=== PATIENT | female | born 1960 | race Caucasian/White ===

== ENCOUNTER 2016-09-19 04:53 | Emergency (ER) | payer MEDICAID ==
[~2016-09-19] VITALS: Ht 165.1 cm; Wt 61.2 kg
[~2016-09-19 04:53] MED LIST: GABA600T PO; HYDR50CA2 PO; LAMO100T5 PO; PALI6TAB3 PO; TRAZ50TA18 PO
[2016-09-19 04:56] VITALS: BP 134/83
[2016-09-19] MEDS ORDERED: LIDOCAINE 1%, 20ML ONE (05:10)
[2016-09-19] MEDS ORDERED: CEFTRIAXONE 1,000 MG ONE (05:20)
[2016-09-19] MEDS ORDERED: CEFTRIAXONE 1,000 MG IM ONE (05:30)
[2016-09-19] MEDS ORDERED: LIDOCAINE 1%, 20ML SQ ONE (05:30)
== END 2016-09-19 05:40 | disposition home or self-care (01) ==
LOC: ED 05:34
DX: L03.011 Cellulitis of right finger (principal); F17.210 Nicotine dependence, cigarettes, uncomplicated; F12.10 Cannabis abuse, uncomplicated
CPT/HCPCS: 26010; 96372; 99283; J0696

== ENCOUNTER 2016-09-20 10:52 | Inpatient (IN) | payer MEDICAID ==
[~2016-09-20] VITALS: Ht 167.6 cm; Wt 59.1 kg
[2016-09-20] MEDS ORDERED: SODIUM CHLORIDE FLUSH 10ML SYR IVF ONE (11:30)
[2016-09-20] MEDS ORDERED: LORazepam 2 MG/ML, 1ML IVPush PRN (11:30)
[2016-09-20] MEDS ORDERED: PIPERACILLIN/TAZO/PMX 3.375GM 50 ML IVPB ONE (11:30)
[2016-09-20] MEDS ORDERED: VANCOMYCIN PER PHARMACY MC ONE (11:30)
[2016-09-20] MEDS ORDERED: PIPERACILLIN/TAZO/PMX 3.375GM 50 ML ONE (11:50)
[2016-09-20] MEDS ORDERED: VANCOMYCIN 1,200 MG in SODIUM CHLORIDE 0.9% 250 ML IV ONE (12:00)
[2016-09-20 12:11] LABS: BLOOD UREA NITROGEN 25 mg/dL (7-18)
[2016-09-20] MEDS ORDERED: FOLIC ACID 5 MG/ML IM ONE (13:00)
[2016-09-20] MEDS ORDERED: LORazepam 2 MG/ML, 1ML IV PRN ×4 (13:00)
[2016-09-20] MEDS ORDERED: ACETAMINOPHEN 325 MG TABLET PO PRN (13:00)
[2016-09-20] MEDS ORDERED: LORazepam 1MG TABLET PO PRN ×3 (13:00)
[2016-09-20] MEDS ORDERED: SODIUM CHLORIDE FLUSH 10ML SYR IVF PRN (13:00)
[2016-09-20] MEDS ORDERED: LORazepam 0.5MG TABLET PO PRN (13:00)
[2016-09-20] MEDS ORDERED: VANCOMYCIN PER PHARMACY MC PRN (13:00)
[2016-09-20] MEDS ORDERED: ONDANSETRON 2MG/ML, 2ML IVP PRN (14:00)
[2016-09-20] MEDS ORDERED: MORPHINE SULFATE 4 MG/ML, 1ML IVPush PRN (14:00)
[2016-09-20] MEDS ORDERED: DOCUSATE 100 MG CAPSULE PO PRN (14:00)
[2016-09-20] MEDS ORDERED: BISACODYL 10 MG SUPP PR PRN (14:00)
[2016-09-20] MEDS ORDERED: POLYETHYLENE GLYCOL 17 GM PACKET PO PRN (14:00)
[2016-09-20] MEDS ORDERED: ONDANSETRON ODT 4 MG PO PRN (14:00)
[2016-09-20] MEDS ORDERED: FOLIC ACID IM ONE (14:30)
[2016-09-20 14:54] VITALS: BP 105/65
[2016-09-20] MEDS ORDERED: VANCOMYCIN 1,200 MG in SODIUM CHLORIDE 0.9% 250 ML IV SCH (15:00)
[2016-09-20] MEDS ORDERED: PHARMACOKINETIC MONITORING MC PRN (15:00)
[2016-09-20] MEDS ORDERED: THIAMINE 200 MG in DEXTROSE 5% 50 ML IVPB ONE (15:00)
[2016-09-20] MEDS ORDERED: PHARMACOKINETIC CONSULTATION MC ONE (15:00)
[2016-09-20] MEDS: NICOTINE 7 MG/24 HR PATCH.TD24 TD SCH (15:18)
[2016-09-20] MEDS: GABAPENTIN 100 MG CAPSULE PO SCH ×2 (15:18→22:44)
[2016-09-20] MEDS: ENOXAPARIN 40 MG/0.4 ML SQ SCH (15:19)
[2016-09-20] MEDS: MAGNESIUM CHLORIDE 64 MG TABLET.DR PO SCH ×2 (15:20→22:44)
[2016-09-20] MEDS: HYDROcodone/APAP 5/325 TABLET PO PRN ×2 (18:26→22:44)
[2016-09-20] MEDS: PIPERACILLIN/TAZO/PMX 3.375GM 50 ML IV SCH (18:27)
[2016-09-20 19:39] VITALS: BP 95/60
[2016-09-20] MEDS: LAMOTRIGINE 100 MG TABLET PO SCH (22:44)
[2016-09-21 01:45] VITALS: BP 97/59
[2016-09-21] MEDS: PIPERACILLIN/TAZO/PMX 3.375GM 50 ML IV SCH ×3 (02:15→20:44)
[2016-09-21 05:43] LABS: BLOOD UREA NITROGEN 19 mg/dL (7-18)
[2016-09-21 05:47] LABS: HEMOGLOBIN 13.4 g/dL (11.7-16.4)
[2016-09-21] MEDS ORDERED: GADOBUTROL 7.5 MMOL/7.5 ML PFS ONE ×2 (07:51→08:00)
[2016-09-21 07:57] VITALS: BP 96/63
[2016-09-21] MEDS: LAMOTRIGINE 100 MG TABLET PO SCH ×2 (09:22→20:44)
[2016-09-21] MEDS: VANCOMYCIN 1,200 MG in SODIUM CHLORIDE 0.9% 250 ML IV SCH (09:22)
[2016-09-21] MEDS: GABAPENTIN 100 MG CAPSULE PO SCH ×3 (09:22→20:44)
[2016-09-21] MEDS: MULTIVITAMINS/MINERALS TABLET PO SCH (09:22)
[2016-09-21] MEDS: MAGNESIUM CHLORIDE 64 MG TABLET.DR PO SCH ×3 (09:22→20:44)
[2016-09-21] MEDS: HYDROcodone/APAP 5/325 TABLET PO PRN ×2 (09:28→11:12)
[2016-09-21 12:58] VITALS: BP 95/58
[2016-09-21] MEDS: NICOTINE 7 MG/24 HR PATCH.TD24 TD SCH (13:49)
[2016-09-21] MEDS: ENOXAPARIN 40 MG/0.4 ML SQ SCH (13:50)
[2016-09-21] MEDS: PALIPERIDONE 1.5 MG TAB.ER.24 PO SCH (13:51)
[2016-09-21 18:38] VITALS: BP 87/48
[2016-09-22 00:14] VITALS: BP 97/63
[2016-09-22] MEDS: PIPERACILLIN/TAZO/PMX 3.375GM 50 ML IV SCH ×3 (02:56→19:51)
[2016-09-22] MEDS: VANCOMYCIN 1,200 MG in SODIUM CHLORIDE 0.9% 250 ML IV SCH ×2 (04:12→22:02)
[2016-09-22 07:08] VITALS: BP 119/76
[2016-09-22] MEDS: MAGNESIUM CHLORIDE 64 MG TABLET.DR PO SCH ×3 (08:20→22:02)
[2016-09-22] MEDS: HYDROcodone/APAP 5/325 TABLET PO PRN ×3 (08:20→17:25)
[2016-09-22] MEDS: GABAPENTIN 100 MG CAPSULE PO SCH ×3 (08:21→22:02)
[2016-09-22] MEDS: MULTIVITAMINS/MINERALS TABLET PO SCH (08:21)
[2016-09-22] MEDS: LAMOTRIGINE 100 MG TABLET PO SCH ×2 (10:59→22:02)
[2016-09-22] MEDS: PALIPERIDONE 1.5 MG TAB.ER.24 PO SCH (10:59)
[2016-09-22 12:06] VITALS: BP 94/61
[2016-09-22] MEDS: ENOXAPARIN 40 MG/0.4 ML SQ SCH (15:11)
[2016-09-22] MEDS: NICOTINE 7 MG/24 HR PATCH.TD24 TD SCH (15:11)
[2016-09-22 18:31] VITALS: BP 97/61
[2016-09-22 19:58] VITALS: BP 125/57
[2016-09-23 01:24] VITALS: BP 107/70
[2016-09-23] MEDS: PIPERACILLIN/TAZO/PMX 3.375GM 50 ML IV SCH ×2 (04:12→12:32)
[2016-09-23 07:51] VITALS: BP 113/77
[2016-09-23] MEDS: MAGNESIUM CHLORIDE 64 MG TABLET.DR PO SCH (08:01)
[2016-09-23] MEDS: PALIPERIDONE 1.5 MG TAB.ER.24 PO SCH (08:01)
[2016-09-23] MEDS: LAMOTRIGINE 100 MG TABLET PO SCH (08:01)
[2016-09-23] MEDS: MULTIVITAMINS/MINERALS TABLET PO SCH (08:01)
[2016-09-23] MEDS: HYDROcodone/APAP 5/325 TABLET PO PRN (08:01)
[2016-09-23] MEDS: GABAPENTIN 100 MG CAPSULE PO SCH (08:01)
[2016-09-23] MEDS ORDERED: HYDR-3240 PO (12:40)
[2016-09-23] MEDS ORDERED: SULF1TAB24 PO (12:40)
== END 2016-09-23 13:35 | disposition home or self-care (01) | DRG 603 ==
LOC: ED 12:22 → EDIP 12:47 → 3NE 13:53
PROVIDERS: ADMIT Internal Medicine; ATTEND Family Medicine
DX: L03.113 Cellulitis of right upper limb (principal); L02.511 Cutaneous abscess of right hand; G89.29 Other chronic pain; M54.2 Cervicalgia; F31.9 Bipolar disorder, unspecified; F20.9 Schizophrenia, unspecified; M54.9 Dorsalgia, unspecified; F17.210 Nicotine dependence, cigarettes, uncomplicated; F41.9 Anxiety disorder, unspecified; F10.10 Alcohol abuse, uncomplicated; S61.216A Laceration without foreign body of right little finger without damage to nail, initial encounter; W45.8XXA Other foreign body or object entering through skin, initial encounter; Y99.8 Other external cause status; Y92.098 Other place in other non-institutional residence as the place of occurrence of the external cause; Y93.89 Activity, other specified; Z63.8 Other specified problems related to primary support group; Z90.89 Acquired absence of other organs; Z90.710 Acquired absence of both cervix and uterus; Z88.8 Allergy status to other drugs, medicaments and biological substances; Z79.899 Other long term (current) drug therapy; Z71.6 Tobacco abuse counseling; Z82.0 Family history of epilepsy and other diseases of the nervous system; Z83.3 Family history of diabetes mellitus; Z71.51 Drug abuse counseling and surveillance of drug abuser
CPT/HCPCS: 36415; 80048; 82040; 83605; 85025; 87040; 99285; A9585; J1650; J2543; J3370; J3411; J7050

== ENCOUNTER 2016-10-10 15:17 | Emergency (ER) | payer MEDICAID ==
[~2016-10-10] VITALS: Ht 165.1 cm; Wt 65.9 kg
[~2016-10-10 15:17] MED LIST changes: +HYDR-3240 PO; +SULF1TAB24 PO
[2016-10-10 15:19] VITALS: BP 122/83
== END 2016-10-10 16:50 | disposition home or self-care (01) ==
LOC: ED 16:44
DX: L03.011 Cellulitis of right finger (principal)
CPT/HCPCS: 99283

== ENCOUNTER 2016-10-19 10:41 | Emergency (ER) | payer MEDICAID ==
[~2016-10-19] VITALS: Ht 165.1 cm; Wt 58.0 kg
[2016-10-19 10:43] VITALS: BP 122/82
== END 2016-10-19 12:18 | disposition home or self-care (01) ==
LOC: ED 12:12
DX: S30.0XXA Contusion of lower back and pelvis, initial encounter (principal); F20.9 Schizophrenia, unspecified; X58.XXXA Exposure to other specified factors, initial encounter; Y93.89 Activity, other specified; Y99.8 Other external cause status; Y92.89 Other specified places as the place of occurrence of the external cause
CPT/HCPCS: 72220; 99284

== ENCOUNTER 2016-10-24 18:01 | Emergency (ER) | payer MEDICAID ==
[~2016-10-24] VITALS: Ht 167.6 cm; Wt 59.1 kg
[2016-10-24] MEDS ORDERED: ONDANSETRON ODT 4 MG PO ONE (19:00)
[2016-10-24] MEDS ORDERED: KETOROLAC 30 MG/1 ML IM ONE (19:00)
[2016-10-24] MEDS ORDERED: PALI1.5T PO (19:04)
[2016-10-24] MEDS ORDERED: KETOROLAC 30 MG/1 ML ONE (19:09)
[2016-10-24] MEDS ORDERED: ONDANSETRON ODT 4 MG ONE (19:09)
[2016-10-24 19:19] LABS: BLOOD UREA NITROGEN 17 mg/dL (7-18)
[2016-10-24 19:22] LABS: ASPARTATE AMINO TRANSFERASE 22 U/L (15-37)
[2016-10-24 21:35] VITALS: BP 122/72
[2016-10-24 21:35] LABS: PATH.CAST-FLAG NOT PRESENT; SPERM-FLAG NOT PRESENT; SRC-FLAG NOT PRESENT; XTAL-FLAG NOT PRESENT; YLC-FLAG NOT PRESENT
== END 2016-10-24 22:38 | disposition home or self-care (01) ==
LOC: ED 19:06
DX: K59.00 Constipation, unspecified (principal); R11.2 Nausea with vomiting, unspecified; K75.9 Inflammatory liver disease, unspecified; F15.10 Other stimulant abuse, uncomplicated; F17.200 Nicotine dependence, unspecified, uncomplicated; Z87.01 Personal history of pneumonia (recurrent)
CPT/HCPCS: 36415; 74022; 80053; 81001; 83690; 85025; 87086; 93005; 96372; 99285; J1885; Q0162

== ENCOUNTER 2017-03-16 23:36 | Emergency (ER) | payer MEDICAID ==
[~2017-03-16] VITALS: Ht 165.1 cm; Wt 55.1 kg
[~2017-03-16 23:36] MED LIST changes: +PALI1.5T PO
[2017-03-17 01:08] LABS: HEMATOCRIT 42.1 % (34.6-47.8); HEMOGLOBIN 14.2 g/dL (11.7-16.4); WHITE BLOOD COUNT 7.4 x10^3/uL (3.4-10)
[2017-03-17 01:21] LABS: ASPARTATE AMINO TRANSFERASE 22 U/L (15-37); BLOOD UREA NITROGEN 18 mg/dL (7-18)
[2017-03-17 01:48] VITALS: BP 122/68
== END 2017-03-17 01:59 | disposition home or self-care (01) ==
LOC: ED 23:55
DX: R10.84 Generalized abdominal pain (principal); R11.2 Nausea with vomiting, unspecified; F20.9 Schizophrenia, unspecified; Z87.891 Personal history of nicotine dependence; Z90.710 Acquired absence of both cervix and uterus
CPT/HCPCS: 36415; 74022; 80053; 83690; 85025; 99285

== ENCOUNTER 2017-04-30 22:44 | Inpatient (IN) | payer MEDICAID ==
[~2017-04-30] VITALS: Ht 166.4 cm; Wt 62.0 kg
[2017-04-30 23:31] LABS: HEMATOCRIT 41.8 % (34.6-47.8); HEMOGLOBIN 14.2 g/dL (11.7-16.4); WHITE BLOOD COUNT 16.2 x10^3/uL (3.4-10)
[2017-04-30 23:41] LABS: BLOOD UREA NITROGEN 15 mg/dL (7-18)
[2017-05-01] MEDS ORDERED: CLINDAMYCIN PMX 600MG/50ML 50 ML IVPB ONE
[2017-05-01] MEDS ORDERED: SODIUM CHLORIDE FLUSH 10ML SYR IVF ONE
[2017-05-01] MEDS ORDERED: SODIUM CHLORIDE 0.9% 1,000ML IVBOLUS ONE
[2017-05-01] MEDS ORDERED: LAMO100T5 PO (00:25)
[2017-05-01] MEDS ORDERED: HYDR25CA PO (00:25)
[2017-05-01] MEDS ORDERED: INVEGA INJECTION (00:25)
[2017-05-01] MEDS ORDERED: GABA300C10 PO (00:25)
[2017-05-01] MEDS ORDERED: IBUPROFEN 200 MG TABLET PO ONE (00:30)
[2017-05-01] MEDS ORDERED: CLINDAMYCIN PMX 600MG/50ML 50 ML ONE (00:38)
[2017-05-01] MEDS ORDERED: SODIUM CHLORIDE 0.9% 1,000 ML IV ONE (00:49)
[2017-05-01] MEDS ORDERED: IBUPROFEN 200 MG TABLET ONE (00:49)
[2017-05-01] MEDS ORDERED: TEMAZEPAM 15 MG CAPSULE PO PRN (01:30)
[2017-05-01] MEDS ORDERED: ONDANSETRON 2MG/ML, 2ML IVPush PRN (01:30)
[2017-05-01] MEDS ORDERED: VANCOMYCIN PER PHARMACY MC PRN (01:30)
[2017-05-01] MEDS ORDERED: LORazepam 2 MG/ML, 1ML IVPush PRN (01:30)
[2017-05-01] MEDS ORDERED: PHARMACOKINETIC MONITORING MC PRN (02:00)
[2017-05-01] MEDS ORDERED: PHARMACOKINETIC CONSULTATION MC ONE (02:00)
[2017-05-01] MEDS: SODIUM CHLORIDE 0.9% 1,000 ML IV SCH ×3 (02:09→20:09)
[2017-05-01] MEDS: AMPICILLIN/SULBACTAM 3 GM in SODIUM CHLORIDE 0.9% 100 ML IV SCH ×4 (02:26→20:09)
[2017-05-01 03:00] VITALS: BP 105/72
[2017-05-01] MEDS: VANCOMYCIN 1,100 MG in SODIUM CHLORIDE 0.9% 250 ML IV SCH ×2 (03:14→20:46)
[2017-05-01 08:10] LABS: DAU SCREEN DISCLAIMER
[2017-05-01 08:40] VITALS: BP 102/63
[2017-05-01] MEDS: ENOXAPARIN 40 MG/0.4 ML SQ SCH (09:00)
[2017-05-01] MEDS: GABAPENTIN 300 MG CAPSULE PO SCH ×3 (09:00→20:09)
[2017-05-01] MEDS: LAMOTRIGINE 100 MG TABLET PO SCH ×2 (09:00→20:09)
[2017-05-01] MEDS: ACETAMINOPHEN 325 MG TABLET PO PRN ×2 (09:00→15:19)
[2017-05-01 15:06] VITALS: BP 102/71
[2017-05-01 21:16] VITALS: BP 91/59
[2017-05-02] VITALS (7 sets, daily range): BP systolic 99–110; BP diastolic 57–77
[2017-05-02] MEDS: AMPICILLIN/SULBACTAM 3 GM in SODIUM CHLORIDE 0.9% 100 ML IV SCH ×3 (02:33→14:30)
[2017-05-02 05:06] LABS: HEMATOCRIT 37.2 % (34.6-47.8); HEMOGLOBIN 12.6 g/dL (11.7-16.4); WHITE BLOOD COUNT 6.4 x10^3/uL (3.4-10)
[2017-05-02 05:13] LABS: BLOOD UREA NITROGEN 9 mg/dL (7-18)
[2017-05-02] MEDS: ACETAMINOPHEN 325 MG TABLET PO PRN ×2 (08:09→12:46)
[2017-05-02] MEDS: SODIUM CHLORIDE 0.9% 1,000 ML IV SCH (09:00)
[2017-05-02] MEDS: LAMOTRIGINE 100 MG TABLET PO SCH (09:47)
[2017-05-02] MEDS: ENOXAPARIN 40 MG/0.4 ML SQ SCH (09:47)
[2017-05-02] MEDS: GABAPENTIN 300 MG CAPSULE PO SCH ×2 (09:47→15:40)
[2017-05-02] MEDS ORDERED: AMOX1TAB64 PO (12:20)
[2017-05-02] MEDS: VANCOMYCIN 1,100 MG in SODIUM CHLORIDE 0.9% 250 ML IV SCH (14:00)
== END 2017-05-02 16:15 | disposition home or self-care (01) | DRG 872 ==
LOC: ED 23:20 → EDIP 05-01 00:49 → 4NOR 05-01 01:52
PROVIDERS: ADMIT Student in an Organized Health Care Education/Training Program; ATTEND Student in an Organized Health Care Education/Training Program
DX: A41.9 Sepsis, unspecified organism (principal); F20.9 Schizophrenia, unspecified; L03.115 Cellulitis of right lower limb; F31.9 Bipolar disorder, unspecified; F41.0 Panic disorder [episodic paroxysmal anxiety]; F41.1 Generalized anxiety disorder; Z88.8 Allergy status to other drugs, medicaments and biological substances
CPT/HCPCS: 36415; 80048; 80307; 82040; 83605; 83735; 84145; 85025; 87040; 99285; J0295; J1650; J3370; G0479; J7030; J7050; Q0177

== ENCOUNTER 2017-06-12 19:36 | Emergency (ER) | payer MEDICAID ==
[~2017-06-12] VITALS: Ht 165.1 cm; Wt 61.8 kg
[~2017-06-12 19:36] MED LIST changes: +AMOX1TAB64 PO; +GABA300C10 PO; +HYDR25CA PO; +INVEGA INJECTION
[2017-06-12 19:39] VITALS: BP 147/96
[2017-06-12] MEDS ORDERED: LORazepam 1MG TABLET PO ONE (20:30)
[2017-06-12] MEDS ORDERED: IBUPROFEN 200 MG TABLET PO ONE (20:30)
== END 2017-06-12 20:50 | disposition left against medical advice (07) ==
LOC: ED 20:11
DX: S30.0XXA Contusion of lower back and pelvis, initial encounter (principal); Z90.710 Acquired absence of both cervix and uterus; F20.9 Schizophrenia, unspecified; Y04.8XXA Assault by other bodily force, initial encounter; Y93.89 Activity, other specified; Y99.8 Other external cause status; Y92.89 Other specified places as the place of occurrence of the external cause
CPT/HCPCS: 72220; 99284

== ENCOUNTER 2017-06-13 07:25 | Emergency (ER) | payer MEDICAID ==
[~2017-06-13] VITALS: Ht 165.1 cm; Wt 61.8 kg
[2017-06-13 07:29] VITALS: BP 138/84
[2017-06-13] MEDS ORDERED: ONDANSETRON ODT 4 MG PO ONE (08:00)
[2017-06-13] MEDS ORDERED: ONDANSETRON ODT 4 MG ONE (08:22)
== END 2017-06-13 09:03 | disposition home or self-care (01) ==
LOC: ED 08:38
DX: R11.0 Nausea (principal); F20.9 Schizophrenia, unspecified
CPT/HCPCS: 99283; Q0162

== ENCOUNTER 2017-12-09 01:38 | Observation (INO) | payer MEDICAID ==
[~2017-12-09] VITALS: Ht 170.2 cm; Wt 75.0 kg
[2017-12-09] MEDS ORDERED: ZIPRASIDONE 20 MG INJ IM ONE (02:10)
[2017-12-09 02:27] LABS: BASOPHILS # (AUTO) 0.08 x10^3/uL (0-0.1); BASOPHILS % (AUTO) 1 % (0-1); EOSINOPHILS # (AUTO) 0.18 x10^3/uL (0-0.4); EOSINOPHILS % (AUTO) 2 % (1-7); LYMPHOCYTES # (AUTO) 2.49 x10^3/uL (1-3.4); LYMPHOCYTES % (AUTO) 30 % (22-44); MD NO; MEAN CORPUSCULAR HEMOGLOBIN 30.1 pg (27.0-34.8); MEAN CORPUSCULAR HGB CONC 33.9 g/dL (32.4-35.8); MEAN CORPUSCULAR VOLUME 88.7 fL (80-100); MEAN PLATELET VOLUME 7.8 fL (7.4-10.4); MONOCYTES # (AUTO) 0.75 x10^3/uL (0.2-0.8); MONOCYTES % (AUTO) 9 % (2-9); NEUTROPHILS # (AUTO) 4.71 x10^3/uL (1.8-6.8); NEUTROPHILS % (AUTO) 57 % (42-75); PLATELET COUNT 273 x10^3/uL (130-400); RED BLOOD COUNT 4.88 x10^6/uL (3.82-5.3); RED CELL DISTRIBUTION WIDTH 13.9 % (9.6-15.2)
[2017-12-09] MEDS ORDERED: LORazepam 1MG TABLET ONE (02:28)
[2017-12-09] MEDS ORDERED: LORazepam 1MG TABLET PO ONE (02:30)
[2017-12-09 02:37] LABS: ALANINE AMINOTRANSFERASE 50 U/L (12-78); ALBUMIN 3.7 g/dL (3.4-5.0); ANION GAP 9 mmol/L (5-15); CALCIUM 8.7 mg/dL (8.5-10.1); CHLORIDE 108 mmol/L (98-107); SALICYLATE LEVEL 1.8 mg/dL (2.8-20.0)
[2017-12-09 02:48] LABS: ALKALINE PHOSPHATASE 75 U/L (45-117); BILIRUBIN,TOTAL 0.5 mg/dL (0.2-1.0); CREATININE 0.72 mg/dL (0.55-1.02); THYROID STIMULATING HORMONE 0.612 mIU/L (0.358-3.740); TOTAL PROTEIN 7.2 g/dL (6.4-8.2)
[2017-12-09 02:50] LABS: ACETAMINOPHEN < 2 mcg/mL (10-30)
[2017-12-09 03:03] LABS: CULTURE INDICATED? YES; MICROSCOPIC INDICATED
[2017-12-09] MEDS ORDERED: FOSFOMYCIN 3 GM PACKET PO ONE (03:30)
[2017-12-09 03:48] LABS: AMPHETAMINE SCREEN, URINE Positive (Negative); BARBITURATE SCREEN, URINE Negative (Negative); BENZODIAZEPINE SCREEN, URINE Negative (Negative); CANNABINOID SCREEN, URINE Positive (Negative); COCAINE SCREEN, URINE Negative (Negative); METHADONE SCREEN, URINE Negative (Negative); OPIATE SCREEN, URINE Negative (Negative)
[2017-12-09] MEDS ORDERED: ONDANSETRON ODT 4 MG PO PRN (05:00)
[2017-12-09] MEDS ORDERED: ACETAMINOPHEN 325 MG TABLET PO PRN (05:00)
[2017-12-09] MEDS ORDERED: LORazepam 2 MG/ML, 1ML IM PRN (05:00)
[2017-12-09] MEDS ORDERED: DOCUSATE 100 MG CAPSULE PO PRN (05:00)
[2017-12-09 05:16] VITALS: BP 108/71
[2017-12-09 07:38] VITALS: BP 114/79
[2017-12-09 19:27] VITALS: BP 92/54
[2017-12-10 07:54] VITALS: BP 133/82
[2017-12-10] MEDS: LORazepam 1MG TABLET PO PRN (08:22)
[2017-12-10] MEDS: NICOTINE 14MG/24 HR PATCH.TD24 TD SCH (16:56)
[2017-12-10 19:48] VITALS: BP 127/83
[2017-12-11 07:56] VITALS: BP 122/79
[2017-12-11] MEDS: NICOTINE 14MG/24 HR PATCH.TD24 TD SCH ×2 (17:00→20:42)
[2017-12-11 20:33] VITALS: BP 120/84
[2017-12-12 09:05] VITALS: BP 132/91
[2017-12-12] MEDS: NICOTINE 14MG/24 HR PATCH.TD24 TD SCH (16:57)
[2017-12-12 20:00] VITALS: BP 120/76
[2017-12-12] MEDS: LORazepam 1MG TABLET PO PRN (21:00)
[2017-12-13 07:32] VITALS: BP 113/77
[2017-12-13] MEDS ORDERED: DOCU-131 PO (16:57)
[2017-12-13] MEDS: NICOTINE 14MG/24 HR PATCH.TD24 TD SCH (16:57)
[2017-12-13] MEDS ORDERED: ONDA4TAB13 PO (16:57)
[2017-12-13] MEDS ORDERED: NICO-486 TD (16:57)
[2017-12-13] MEDS ORDERED: LORA-446 PO (16:57)
[2017-12-13] MEDS ORDERED: ACET325T14 PO (16:57)
== END 2017-12-13 17:26 ==
LOC: ED 03:13 → EDIP 03:32 → 2N 05:08
PROVIDERS: ADMIT Internal Medicine; ATTEND Internal Medicine
DX: R44.0 Auditory hallucinations (principal); F12.10 Cannabis abuse, uncomplicated; F15.10 Other stimulant abuse, uncomplicated; F17.200 Nicotine dependence, unspecified, uncomplicated; F31.9 Bipolar disorder, unspecified; N39.0 Urinary tract infection, site not specified
CPT/HCPCS: 36415; 80053; 80307; 80329; 81001; 84443; 85025; 87086; 99285; G0378; G0480

== ENCOUNTER 2017-12-13 17:10 | Inpatient (IN) | payer MEDICAID ==
[~2017-12-13] VITALS: Ht 165.1 cm; Wt 69.6 kg
[~2017-12-13 17:10] MED LIST changes: +ACET325T14 PO; +DOCU-131 PO; +LORA-446 PO; +NICO-486 TD; +ONDA4TAB13 PO
[2017-12-13 18:00] VITALS: BP 117/85
[2017-12-13] MEDS ORDERED: LORazepam 1MG TABLET PO PRN (18:30)
[2017-12-13] MEDS ORDERED: NICOTINE 14MG/24 HR PATCH.TD24 TD SCH (18:30)
[2017-12-13] MEDS ORDERED: ACETAMINOPHEN 325 MG TABLET PO PRN (18:30)
[2017-12-13] MEDS: PLEASE ENTER HEIGHT AND WEIGHT MC SCH (19:00)
[2017-12-13 20:28] VITALS: BP 112/78
[2017-12-14] MEDS: PLEASE ENTER HEIGHT AND WEIGHT MC SCH ×2 (03:00→11:40)
[2017-12-14 09:12] VITALS: BP 104/68
[2017-12-14] MEDS: NICOTINE 14MG/24 HR PATCH.TD24 TD SCH (17:29)
[2017-12-14 20:00] VITALS: BP 109/74
[2017-12-14] MEDS: LAMOTRIGINE 25 MG TABLET PO SCH (21:05)
[2017-12-15 08:05] VITALS: BP 106/69
[2017-12-15] MEDS: LAMOTRIGINE 25 MG TABLET PO SCH ×2 (09:12→21:07)
[2017-12-15] MEDS: NICOTINE 14MG/24 HR PATCH.TD24 TD SCH (16:42)
[2017-12-15 19:45] VITALS: BP 109/75
[2017-12-16 07:28] VITALS: BP 117/69
[2017-12-16] MEDS: LAMOTRIGINE 25 MG TABLET PO SCH ×2 (08:36→19:58)
[2017-12-16] MEDS ORDERED: LAMO25TA PO (12:06)
[2017-12-16] MEDS ORDERED: NICO-486 TD (12:06)
[2017-12-16] MEDS: NICOTINE 14MG/24 HR PATCH.TD24 TD SCH (16:39)
[2017-12-16 19:59] VITALS: BP 105/66
[2017-12-17 07:40] VITALS: BP_SYST 103; BP_SYST 125; BP_DIAS 65; BP_DIAS 84
[2017-12-17] MEDS: LAMOTRIGINE 25 MG TABLET PO SCH (08:22)
== END 2017-12-17 12:00 | disposition home or self-care (01) | DRG 885 ==
LOC: 3E 18:03
PROVIDERS: ADMIT Psychiatry & Neurology Psychosomatic Medicine; ATTEND Psychiatry & Neurology Psychosomatic Medicine
DX: F31.10 Bipolar disorder, current episode manic without psychotic features, unspecified (principal); B19.20 Unspecified viral hepatitis C without hepatic coma; E86.0 Dehydration; F12.20 Cannabis dependence, uncomplicated; F15.10 Other stimulant abuse, uncomplicated; I10 Essential (primary) hypertension; J44.9 Chronic obstructive pulmonary disease, unspecified; F17.210 Nicotine dependence, cigarettes, uncomplicated
CPT/HCPCS: 71045; 93005

== ENCOUNTER 2017-12-25 21:00 | Emergency (ER) | payer MEDICAID ==
[~2017-12-25] VITALS: Ht 165.1 cm; Wt 64.0 kg
[~2017-12-25 21:00] MED LIST changes: +LAMO25TA PO
[2017-12-25] MEDS ORDERED: KETOROLAC 30 MG/1 ML IVPush ONE (21:30)
[2017-12-25] MEDS ORDERED: ONDANSETRON 2MG/ML, 2ML IVPush ONE (21:30)
[2017-12-25 21:52] LABS: BASOPHILS # (AUTO) 0.03 x10^3/uL (0-0.1); BASOPHILS % (AUTO) 1 % (0-1); EOSINOPHILS # (AUTO) 0.23 x10^3/uL (0-0.4); EOSINOPHILS % (AUTO) 4 % (1-7); LYMPHOCYTES # (AUTO) 2.65 x10^3/uL (1-3.4); LYMPHOCYTES % (AUTO) 43 % (22-44); MD NO; MEAN CORPUSCULAR HEMOGLOBIN 30.9 pg (27.0-34.8); MEAN CORPUSCULAR HGB CONC 34.8 g/dL (32.4-35.8); MEAN CORPUSCULAR VOLUME 88.8 fL (80-100); MEAN PLATELET VOLUME 8.1 fL (7.4-10.4); MONOCYTES # (AUTO) 0.69 x10^3/uL (0.2-0.8); MONOCYTES % (AUTO) 11 % (2-9); NEUTROPHILS # (AUTO) 2.62 x10^3/uL (1.8-6.8); NEUTROPHILS % (AUTO) 42 % (42-75); PLATELET COUNT 253 x10^3/uL (130-400); RED BLOOD COUNT 4.33 x10^6/uL (3.82-5.3)
[2017-12-25 22:01] LABS: ALBUMIN 3.4 g/dL (3.4-5.0); ANION GAP 6 mmol/L (5-15); CALCIUM 8.4 mg/dL (8.5-10.1); CHLORIDE 110 mmol/L (98-107)
[2017-12-25 22:05] LABS: TROPONIN I < 0.015 ng/mL (0.000-0.045)
[2017-12-25] MEDS ORDERED: POTASSIUM CHLORIDE 20 MEQ TAB.ER.PRT PO ONE (22:30)
[2017-12-25] MEDS ORDERED: POTASSIUM CHLORIDE 20 MEQ TAB.ER.PRT ONE (22:32)
[2017-12-25 23:08] VITALS: BP 117/74
== END 2017-12-25 23:10 | disposition home or self-care (01) ==
LOC: ED 22:59
DX: R05 Cough (principal); R07.89 Other chest pain; F15.10 Other stimulant abuse, uncomplicated; E87.6 Hypokalemia; E11.9 Type 2 diabetes mellitus without complications; Z90.710 Acquired absence of both cervix and uterus; F17.200 Nicotine dependence, unspecified, uncomplicated; Z72.89 Other problems related to lifestyle
CPT/HCPCS: 36415; 71045; 80048; 82040; 84484; 85025; 93005; 99285

== ENCOUNTER 2018-01-03 16:48 | Emergency (ER) | payer MEDICAID ==
[~2018-01-03] VITALS: Ht 152.4 cm; Wt 64.0 kg
[~2018-01-03 16:48] MED LIST changes: +TRAZ-136 PO; -TRAZ50TA18 PO
[2018-01-03 17:12] LABS: BASOPHILS # (AUTO) 0.03 x10^3/uL (0-0.1); BASOPHILS % (AUTO) 1 % (0-1); EOSINOPHILS # (AUTO) 0.21 x10^3/uL (0-0.4); EOSINOPHILS % (AUTO) 3 % (1-7); LYMPHOCYTES # (AUTO) 2.16 x10^3/uL (1-3.4); LYMPHOCYTES % (AUTO) 34 % (22-44); MD NO; MEAN CORPUSCULAR HEMOGLOBIN 30.3 pg (27.0-34.8); MEAN CORPUSCULAR HGB CONC 33.7 g/dL (32.4-35.8); MEAN PLATELET VOLUME 7.8 fL (7.4-10.4); MONOCYTES # (AUTO) 0.55 x10^3/uL (0.2-0.8); MONOCYTES % (AUTO) 9 % (2-9); NEUTROPHILS # (AUTO) 3.49 x10^3/uL (1.8-6.8); NEUTROPHILS % (AUTO) 54 % (42-75); PLATELET COUNT 223 x10^3/uL (130-400); RED BLOOD COUNT 4.84 x10^6/uL (3.82-5.3); RED CELL DISTRIBUTION WIDTH 14.2 % (9.6-15.2)
[2018-01-03 17:24] LABS: ALANINE AMINOTRANSFERASE 38 U/L (12-78); ALBUMIN 3.2 g/dL (3.4-5.0); ANION GAP 8 mmol/L (5-15); CALCIUM 8.3 mg/dL (8.5-10.1); CHLORIDE 111 mmol/L (98-107); CREATININE 0.74 mg/dL (0.55-1.02)
[2018-01-03 17:27] LABS: ALKALINE PHOSPHATASE 65 U/L (45-117); BILIRUBIN,TOTAL 0.2 mg/dL (0.2-1.0); TOTAL PROTEIN 6.7 g/dL (6.4-8.2)
[2018-01-03] MEDS ORDERED: SODIUM CHLORIDE FLUSH 10ML SYR IVF ONE (17:30)
[2018-01-03] MEDS ORDERED: ONDANSETRON 2MG/ML, 2ML IVPush ONE (17:30)
[2018-01-03] MEDS ORDERED: SODIUM CHLORIDE 0.9% 1,000ML IVBOLUS ONE (17:30)
[2018-01-03 18:07] VITALS: BP 124/81
== END 2018-01-03 19:17 | disposition home or self-care (01) ==
LOC: ED 18:12
DX: F10.239 Alcohol dependence with withdrawal, unspecified (principal); E11.9 Type 2 diabetes mellitus without complications; F41.1 Generalized anxiety disorder; F20.9 Schizophrenia, unspecified; Z90.710 Acquired absence of both cervix and uterus; Z88.8 Allergy status to other drugs, medicaments and biological substances
CPT/HCPCS: 36415; 80053; 80307; 85025; 96374; 99284; J2405; J7030

== ENCOUNTER 2018-04-27 20:59 | Emergency (ER) | payer MEDICAID ==
[~2018-04-27] VITALS: Ht 165.1 cm; Wt 65.0 kg
[2018-04-27 22:45] VITALS: BP 156/94
== END 2018-04-27 22:47 | disposition home or self-care (01) ==
LOC: ED 21:27
DX: M25.562 Pain in left knee (principal); E11.9 Type 2 diabetes mellitus without complications
CPT/HCPCS: 82962; 99283

== ENCOUNTER 2018-06-05 20:41 | Emergency (ER) | payer MEDICAID ==
[~2018-06-05] VITALS: Ht 165.1 cm; Wt 64.8 kg
[~2018-06-05 20:41] MED LIST changes: -TRAZ-136 PO; +TRAZ50TA66 PO
--- NOTE | 2018-06-05 21:07 | NUR ---
PT ARRIVES TO ED WITH C/O OF CHEST PAIN THAT STARTED AT 1400. PT REPORTS CHEST PAIN SHARP WITH NO RADIATION. ALSO A 7/10 CHEST PAIN. PT DENIES ANY TRAUMA AND REPORTS STARTED OUT OF NOWHERE. NO DIAPHORESIS, SOB, N/V. PT HAS NADN. REST IMRPROVING PAIN. PT CONNECTED TO MONITORS AND CALL LIGHT IN REACH. AWAITING FURTHER ORDERS.
[2018-06-05] MEDS ORDERED: ACETAMINOPHEN 500 MG TABLET ONE (21:17)
[2018-06-05] MEDS ORDERED: NAPROXEN 500 MG TABLET ONE (21:17)
--- NOTE | 2018-06-05 21:25 | NUR ---
PT MEDICATED PER EMAR.
[2018-06-05] MEDS ORDERED: NAPROXEN 500 MG TABLET PO ONE (21:30)
[2018-06-05] MEDS ORDERED: ACETAMINOPHEN 500 MG TABLET PO ONE (21:30)
[2018-06-05 21:31] LABS: BASOPHILS # (AUTO) 0.05 x10^3/uL (0-0.1); BASOPHILS % (AUTO) 1 % (0-1); EOSINOPHILS # (AUTO) 0.21 x10^3/uL (0-0.4); EOSINOPHILS % (AUTO) 4 % (1-7); LYMPHOCYTES # (AUTO) 2.57 x10^3/uL (1-3.4); LYMPHOCYTES % (AUTO) 45 % (22-44); MD NO; MEAN CORPUSCULAR HEMOGLOBIN 29.5 pg (27.0-34.8); MEAN CORPUSCULAR HGB CONC 33.2 g/dL (32.4-35.8); MEAN CORPUSCULAR VOLUME 88.8 fL (80-100); MEAN PLATELET VOLUME 7.9 fL (7.4-10.4); MONOCYTES # (AUTO) 0.53 x10^3/uL (0.2-0.8); MONOCYTES % (AUTO) 9 % (2-9); NEUTROPHILS # (AUTO) 2.34 x10^3/uL (1.8-6.8); NEUTROPHILS % (AUTO) 41 % (42-75); PLATELET COUNT 206 x10^3/uL (130-400); RED BLOOD COUNT 4.56 x10^6/uL (3.82-5.3); RED CELL DISTRIBUTION WIDTH 14.6 % (9.6-15.2)
[2018-06-05 21:39] LABS: ALBUMIN 3.3 g/dL (3.4-5.0); ANION GAP 7 mmol/L (5-15); CALCIUM 7.9 mg/dL (8.5-10.1); CHLORIDE 112 mmol/L (98-107); CREATININE 0.79 mg/dL (0.55-1.02)
[2018-06-05 21:42] LABS: TROPONIN I < 0.015 ng/mL (0.000-0.045)
[2018-06-05 21:46] VITALS: BP 132/84
--- NOTE | 2018-06-05 22:06 | NUR ---
Patient/Caregiver given discharge instructions and they have confirmed that they understand the instructions. Patient ambulatory with steady gait.
== END 2018-06-05 22:08 | disposition home or self-care (01) ==
LOC: ED 22:02
DX: R07.2 Precordial pain (principal); F17.200 Nicotine dependence, unspecified, uncomplicated
CPT/HCPCS: 36415; 71045; 80048; 82040; 84484; 85025; 85379; 93005; 99284

== ENCOUNTER 2018-08-11 13:15 | Emergency (ER) | payer MEDICAID ==
[~2018-08-11] VITALS: Ht 157.5 cm; Wt 63.0 kg
[~2018-08-11 13:15] MED LIST changes: -LAMO25TA PO; +LAMO25TA9 PO
[2018-08-11 13:35] VITALS: BP 140/78
--- NOTE | 2018-08-11 13:42 | NUR ---
PT AMBULATORY TO ROOM.
[2018-08-11 13:58] LABS: MEAN CORPUSCULAR HEMOGLOBIN 30.9 pg (27.0-34.8); MEAN CORPUSCULAR HGB CONC 34.9 g/dL (32.4-35.8); MEAN CORPUSCULAR VOLUME 88.6 fL (80-100); MEAN PLATELET VOLUME 8.3 fL (7.4-10.4); PLATELET COUNT 208 x10^3/uL (130-400); RED BLOOD COUNT 4.12 x10^6/uL (3.82-5.3); RED CELL DISTRIBUTION WIDTH 14.3 % (9.6-15.2)
[2018-08-11 14:09] LABS: ALBUMIN 4.3 g/dL (3.4-5.0); ANION GAP 14 mmol/L (5-15); CALCIUM 8.8 mg/dL (8.5-10.1); CHLORIDE 104 mmol/L (98-107)
[2018-08-11 14:13] LABS: ALANINE AMINOTRANSFERASE 71 U/L (12-78); ALKALINE PHOSPHATASE 77 U/L (45-117); BILIRUBIN,TOTAL 1.5 mg/dL (0.2-1.0); SALICYLATE LEVEL 3.4 mg/dL (2.8-20.0); TOTAL PROTEIN 7.4 g/dL (6.4-8.2)
[2018-08-11 14:14] LABS: ACETAMINOPHEN < 2 mcg/mL (10-30)
--- NOTE | 2018-08-11 14:30 | NUR ---
UP TO BR UNABLE TO URINATE REP AWARE PO FLIDS GIVEN
[2018-08-11 14:47] LABS: BASOPHILS % (AUTO) 1 % (0-1); EOSINOPHILS # (AUTO) 0.01 x10^3/uL (0-0.4); EOSINOPHILS % (AUTO) 0 % (1-7); LYMPHOCYTES # (AUTO) 2.63 x10^3/uL (1-3.4); LYMPHOCYTES % (AUTO) 19 % (22-44); MD SCAN; MONOCYTES # (AUTO) 1.55 x10^3/uL (0.2-0.8); MONOCYTES % (AUTO) 11 % (2-9); NEUTROPHILS # (AUTO) 9.54 x10^3/uL (1.8-6.8); NEUTROPHILS % (AUTO) 69 % (42-75)
== END 2018-08-11 16:11 | disposition home or self-care (01) ==
LOC: ED 15:18
DX: F15.90 Other stimulant use, unspecified, uncomplicated (principal); F20.9 Schizophrenia, unspecified; F41.1 Generalized anxiety disorder; E11.9 Type 2 diabetes mellitus without complications; F17.200 Nicotine dependence, unspecified, uncomplicated; Z72.9 Problem related to lifestyle, unspecified; Z88.8 Allergy status to other drugs, medicaments and biological substances; Z90.710 Acquired absence of both cervix and uterus
CPT/HCPCS: 36415; 80053; 80307; 80329; 85025; 99283; G0480

== ENCOUNTER 2018-09-24 17:37 | Emergency (ER) | payer MEDICAID ==
[~2018-09-24] VITALS: Ht 165.1 cm; Wt 60.0 kg
[2018-09-24] MEDS ORDERED: HYDR10TA4 PO (18:17)
[2018-09-24] MEDS ORDERED: GABA300C10 PO (18:17)
[2018-09-24] MEDS ORDERED: LAMO5TB.2 PO (18:17)
[2018-09-24] MEDS ORDERED: DIAZEPAM 5 MG TABLET ONE (18:23)
[2018-09-24] MEDS ORDERED: DIAZEPAM 5 MG TABLET PO ONE (18:30)
--- NOTE | 2018-09-24 18:32 | NUR ---
Pt ambulatory to x-ray with steady gait and balance. Pt provided medication per EMAR.
--- NOTE | 2018-09-24 18:52 | NUR ---
received report from JAIMIE Cline
--- NOTE | 2018-09-24 19:20 | NUR ---
sling applied. patient discharged with prescription and instruction. verbalized understanding.
[2018-09-24 19:21] VITALS: BP 154/81
== END 2018-09-24 19:22 | disposition home or self-care (01) ==
LOC: ED 18:36
DX: M25.511 Pain in right shoulder (principal)
CPT/HCPCS: 82962; 99283

== ENCOUNTER 2018-11-16 00:34 | Emergency (ER) | payer MEDICAID ==
[~2018-11-16] VITALS: Ht 165.1 cm; Wt 60.1 kg
[~2018-11-16 00:34] MED LIST changes: +HYDR10TA4 PO; +LAMO5TB.2 PO
[2018-11-16 00:38] VITALS: BP 152/89
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
== END 2018-11-16 01:27 | disposition home or self-care (01) ==
LOC: ED 01:21
DX: J01.90 Acute sinusitis, unspecified (principal); Z59.0 Homelessness; F20.9 Schizophrenia, unspecified; F15.10 Other stimulant abuse, uncomplicated; Z90.710 Acquired absence of both cervix and uterus
CPT/HCPCS: 99283

== ENCOUNTER 2018-12-30 23:55 | Inpatient (IN) | payer MEDICAID ==
[~2018-12-30] VITALS: Ht 165.1 cm; Wt 60.4 kg
[2019-01-13 14:55] VITALS: BP 107/74
== END 2019-01-13 16:30 | DRG 316 ==
LOC: ED 12-31 00:30 → EDIP 12-31 01:11 → 3NE 12-31 02:00 → 3E 01-05 06:36
PROVIDERS: ADMIT Family Medicine; ATTEND Family Medicine
PROC: 0LB80ZZ Excision of Left Hand Tendon, Open Approach (ICD-10-PCS; principal; 2019-01-05)
DX: M65.142 Other infective (teno)synovitis, left hand (principal); E44.0 Moderate protein-calorie malnutrition; F20.9 Schizophrenia, unspecified; L02.512 Cutaneous abscess of left hand; E11.9 Type 2 diabetes mellitus without complications; E87.6 Hypokalemia; F10.10 Alcohol abuse, uncomplicated; L03.114 Cellulitis of left upper limb; F15.10 Other stimulant abuse, uncomplicated; F17.210 Nicotine dependence, cigarettes, uncomplicated; F15.129 Other stimulant abuse with intoxication, unspecified; F41.1 Generalized anxiety disorder; K59.00 Constipation, unspecified; Z90.710 Acquired absence of both cervix and uterus; Z82.5 Family history of asthma and other chronic lower respiratory diseases; Z82.49 Family history of ischemic heart disease and other diseases of the circulatory system; Z83.3 Family history of diabetes mellitus; Z59.0 Homelessness; Z63.8 Other specified problems related to primary support group; Z71.6 Tobacco abuse counseling; Z88.8 Allergy status to other drugs, medicaments and biological substances; Z68.22 Body mass index [BMI] 22.0-22.9, adult
CPT/HCPCS: 36415; 80048; 80053; 80069; 80202; 80307; 83036; 83605; 83735; 84145; 85025; 85651; 86140; 87015; 87040; 87070; 87075; 87102; 87116; 87205; 87206; 93005; 96365; 99285; G0378; J0690; J1100; J1170; J1650; J1885; J2250; J2405; J2543; J2704; J3010; J3370; J7050; J7120

== ENCOUNTER 2019-03-28 15:03 | Emergency (ER) | payer MEDICAID ==
[~2019-03-28] VITALS: Ht 165.1 cm; Wt 62.0 kg
[~2019-03-28 15:03] MED LIST changes: +ACET325T26 PO; +CEFA2PIG7 IVPB
--- NOTE | 2019-03-28 15:20 | NUR ---
MAYE SARGENT CP THIS AM ANXIOUS ON CHANTIX AND SMOKING, also just started wellbutrin Took aleve this afternoon with minimal relief
[2019-03-28] MEDS ORDERED: ASPIRIN 81 MG TABLET CHEW PO ONE (15:30)
[2019-03-28 15:40] LABS: BASOPHILS # (AUTO) 0.04 x10^3/uL (0-0.1); BASOPHILS % (AUTO) 1 % (0-1); EOSINOPHILS # (AUTO) 0.26 x10^3/uL (0-0.4); EOSINOPHILS % (AUTO) 4 % (1-7); LYMPHOCYTES # (AUTO) 2.08 x10^3/uL (1-3.4); LYMPHOCYTES % (AUTO) 32 % (22-44); MD NO; MEAN CORPUSCULAR HEMOGLOBIN 30.1 pg (27.0-34.8); MEAN CORPUSCULAR HGB CONC 33.7 g/dL (32.4-35.8); MEAN CORPUSCULAR VOLUME 89.3 fL (80-100); MONOCYTES # (AUTO) 0.43 x10^3/uL (0.2-0.8); MONOCYTES % (AUTO) 7 % (2-9); NEUTROPHILS % (AUTO) 57 % (42-75); PLATELET COUNT 251 x10^3/uL (130-400); RED CELL DISTRIBUTION WIDTH 14.6 % (9.6-15.2)
[2019-03-28] MEDS ORDERED: ASPIRIN 81 MG TABLET CHEW ONE (15:42)
--- NOTE | 2019-03-28 15:50 | NUR ---
medicated per emar
[2019-03-28 15:52] LABS: ALANINE AMINOTRANSFERASE 49 U/L (12-78); ALBUMIN 3.7 g/dL (3.4-5.0); ANION GAP 7 mmol/L (5-15); CALCIUM 8.6 mg/dL (8.5-10.1); CHLORIDE 110 mmol/L (98-107); CREATININE 0.79 mg/dL (0.55-1.02)
[2019-03-28 15:57] LABS: ALKALINE PHOSPHATASE 72 U/L (45-117); BILIRUBIN,TOTAL 0.3 mg/dL (0.2-1.0); TOTAL PROTEIN 7.3 g/dL (6.4-8.2); TROPONIN I < 0.015 ng/mL (0.000-0.045)
[2019-03-28 16:29] VITALS: BP 128/71
== END 2019-03-28 16:55 | disposition home or self-care (01) ==
LOC: ED 16:05
DX: R07.89 Other chest pain (principal); E11.9 Type 2 diabetes mellitus without complications; F20.9 Schizophrenia, unspecified; Z72.9 Problem related to lifestyle, unspecified; Z90.49 Acquired absence of other specified parts of digestive tract; Z90.710 Acquired absence of both cervix and uterus; Z87.891 Personal history of nicotine dependence
CPT/HCPCS: 36415; 71045; 80053; 84484; 85025; 93005; 99284

== ENCOUNTER 2019-04-04 15:05 | Emergency (ER) | payer MEDICAID ==
[~2019-04-04] VITALS: Ht 165.1 cm; Wt 63.4 kg
[2019-04-04 15:14] VITALS: BP 155/98
--- NOTE | 2019-04-04 15:54 | NUR ---
FIRST CONTACT WITH PT. PT COMES TO TRIAGE WITH FLIGHT OF IDEAS DESCRIBING PHONE AND CLOTHING AND CHATTING PLEASANTLY WITH RN AND EMT. PT C/O LEFT HAND PAIN. PT TALKING BY HERSELF ABOUT HER BELONGINGS AT THIS TIME. PT DENIES SI/HI NOW.
--- NOTE | 2019-04-04 16:40 | NUR ---
PT AWARES OF UA. EDMD OK'D TO GIVE SOME WATER. WATER GIVEN.
[2019-04-04 16:46] LABS: BASOPHILS # (AUTO) 0.02 x10^3/uL (0-0.1); BASOPHILS % (AUTO) 0 % (0-1); EOSINOPHILS # (AUTO) 0.16 x10^3/uL (0-0.4); EOSINOPHILS % (AUTO) 2 % (1-7); LYMPHOCYTES # (AUTO) 2.03 x10^3/uL (1-3.4); LYMPHOCYTES % (AUTO) 31 % (22-44); MD NO; MEAN CORPUSCULAR HEMOGLOBIN 30.5 pg (27.0-34.8); MEAN CORPUSCULAR HGB CONC 33.5 g/dL (32.4-35.8); MEAN CORPUSCULAR VOLUME 91.1 fL (80-100); MEAN PLATELET VOLUME 7.7 fL (7.4-10.4); MONOCYTES # (AUTO) 0.66 x10^3/uL (0.2-0.8); MONOCYTES % (AUTO) 10 % (2-9); NEUTROPHILS # (AUTO) 3.67 x10^3/uL (1.8-6.8); NEUTROPHILS % (AUTO) 56 % (42-75); PLATELET COUNT 232 x10^3/uL (130-400); RED BLOOD COUNT 4.71 x10^6/uL (3.82-5.3); RED CELL DISTRIBUTION WIDTH 14.5 % (9.6-15.2)
--- NOTE | 2019-04-04 16:57 | NUR ---
PT AMB TO BR WITH STEADY GAIT FOR UA.
[2019-04-04 16:59] LABS: ALBUMIN 3.6 g/dL (3.4-5.0); ANION GAP 8 mmol/L (5-15); CALCIUM 8.8 mg/dL (8.5-10.1); CHLORIDE 109 mmol/L (98-107); CREATININE 0.62 mg/dL (0.55-1.02); SALICYLATE LEVEL 8.8 mg/dL (2.8-20.0)
[2019-04-04] MEDS ORDERED: DIVALPROEX 500 MG TAB.ER.24H PO SCH (17:00)
--- NOTE | 2019-04-04 17:06 | NUR ---
PT PROVIDED URINE SAMPLE AT THIS TIME. UA SENT.
[2019-04-04] MEDS ORDERED: DIVALPROEX 500 MG TAB.ER.24H ONE (17:08)
--- NOTE | 2019-04-04 17:11 | NUR ---
PT MEDICATED PER EMAR. PT TOLERATED WELL.
--- NOTE | 2019-04-04 17:55 | NUR ---
TASK RN: DC EDUCATION PROVIDED, PT DEMONSTRATES UNDERSTANDING. PT AMBULATED STEADILY TO DC WITH RN
[2019-04-04 18:01] LABS: AMPHETAMINE SCREEN, URINE Positive (Negative); BARBITURATE SCREEN, URINE Negative (Negative); BENZODIAZEPINE SCREEN, URINE Negative (Negative); CANNABINOID SCREEN, URINE Positive (Negative); COCAINE SCREEN, URINE Negative (Negative); METHADONE SCREEN, URINE Negative (Negative); OPIATE SCREEN, URINE Negative (Negative)
== END 2019-04-04 17:57 | disposition home or self-care (01) ==
LOC: ED 17:51
DX: M79.645 Pain in left finger(s) (principal); F22 Delusional disorders; E11.9 Type 2 diabetes mellitus without complications; I10 Essential (primary) hypertension; F20.9 Schizophrenia, unspecified; F41.1 Generalized anxiety disorder
CPT/HCPCS: 36415; 80048; 80307; 82040; 85025; 99283

== ENCOUNTER 2019-04-25 06:26 | Emergency (ER) | payer MEDICAID ==
--- NOTE | 2019-04-25 06:46 | NUR ---
THIS 59 YOF BIB [facility] FOR AGITATION AND SI COMMENTS. PT RAMBLING, DIFFICULT TO FOCUS, REPEATED QUESTIONS WILL GET A DIFFERENT ANSWER. PT DOES STATE IS FEELING SUICIDAL AT THIS TIME. PT YELLING AT PEOPLE NOT IN THE ROOM. PT UNABLE TO FOCUS ON RN OR ANSWER QUESTIONS. PT DENIES C/O PAIN AT THIS TIME. PT RECEIVED 2MG VERSED W/ [facility] NAIL KEGGER.
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
--- NOTE | 2019-04-25 07:05 | NUR ---
energy sales broker: I requested that ALPHONSE Multani evaluate pt, as pt is screaming & demanding to see MD. Primary RN Breonna at bedside.
[2019-04-25] MEDS ORDERED: ZIPRASIDONE 20 MG INJ IM ONE ×2 (07:15→10:00)
--- NOTE | 2019-04-25 07:22 | NUR ---
DR SIMMONS IN TO EVAL PT, STATES PT IS TO BE A LEGAL HOLD, ORDERS RECIEVED FOR PRISCA, SECURITY CALLED, PT MEDICATED PER MD ORDER, SEWER AND DRAIN TECHNICIAN UPDATED
[2019-04-25] MEDS ORDERED: LORazepam 2 MG/ML, 1ML IM ONE (07:30)
--- NOTE | 2019-04-25 08:00 | NUR ---
PT BEGINNIN TO CALM, STAYING IN RM. SHE IS RESTING ON GURNEY AT THIS TIME. NAD NOTED
[2019-04-25 08:31] LABS: BASOPHILS # (AUTO) 0.01 x10^3/uL (0-0.1); BASOPHILS % (AUTO) 0 % (0-1); EOSINOPHILS % (AUTO) 0 % (1-7); LYMPHOCYTES # (AUTO) 0.88 x10^3/uL (1-3.4); LYMPHOCYTES % (AUTO) 10 % (22-44); MD NO; MEAN CORPUSCULAR HEMOGLOBIN 30.1 pg (27.0-34.8); MEAN CORPUSCULAR HGB CONC 33.6 g/dL (32.4-35.8); MEAN CORPUSCULAR VOLUME 89.6 fL (80-100); MEAN PLATELET VOLUME 8.6 fL (7.4-10.4); MONOCYTES # (AUTO) 0.46 x10^3/uL (0.2-0.8); MONOCYTES % (AUTO) 5 % (2-9); NEUTROPHILS # (AUTO) 7.38 x10^3/uL (1.8-6.8); NEUTROPHILS % (AUTO) 85 % (42-75); PLATELET COUNT 204 x10^3/uL (130-400); RED BLOOD COUNT 4.25 x10^6/uL (3.82-5.3); RED CELL DISTRIBUTION WIDTH 13.7 % (9.6-15.2)
[2019-04-25 08:32] LABS: ALBUMIN 3.8 g/dL (3.4-5.0); ANION GAP 14 mmol/L (5-15); CALCIUM 9.1 mg/dL (8.5-10.1); CHLORIDE 108 mmol/L (98-107); SALICYLATE LEVEL 2.4 mg/dL (2.8-20.0)
[2019-04-25 08:34] LABS: CREATININE 0.65 mg/dL (0.55-1.02)
--- NOTE | 2019-04-25 09:37 | NUR ---
PT SLEEPING ON GURNEY AT THIS TIME, VISIABLE CHEST RISE AND FALL NOTED. PER MD OK TO WAIT UNTIL PT AWAKE MORE TO OBTAIN URINE SAMPLE, NO STRAIGHT CATH NEEDED AT THIS TIME. SITTER REMAINS IN PLACE
--- NOTE | 2019-04-25 11:11 | NUR ---
PT CONTINUES TO SLEEP ON GURNEY, VISIBLE CHEST RISE AND FALL NOTED. SI PRECAUTIONS IN PLACE, MEDICAL ASSISTANT OB GYN BY TO EVAL, UNABLE D/T PT SEDATED. NAD NOTED
[2019-04-25 11:47] VITALS: BP 118/73
--- NOTE | 2019-04-25 11:48 | NUR ---
EKG COMPLETED PER MD ORDER, PT TO CARD MONITORING, CONT PULSE OX
--- NOTE | 2019-04-25 14:27 | NUR ---
UDS COLLECTED AND SENT TO LAB. PT REMAINS CALM, RESTING ON GURNEY, NO NEEDS AT THIS TIME
[2019-04-25 14:58] LABS: AMPHETAMINE SCREEN, URINE Positive (Negative); BARBITURATE SCREEN, URINE Negative (Negative); BENZODIAZEPINE SCREEN, URINE Positive (Negative); CANNABINOID SCREEN, URINE Positive (Negative); COCAINE SCREEN, URINE Negative (Negative); METHADONE SCREEN, URINE Negative (Negative); OPIATE SCREEN, URINE Negative (Negative)
[2019-04-25] MEDS ORDERED: RISPERIDONE 1 MG TABLET PO ONE (17:00)
[2019-04-25] MEDS ORDERED: RISPERIDONE 2 MG TABLET ONE (17:00)
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
[2019-04-25] MEDS ORDERED: CHANTIX (19:23)
[2019-04-25] MEDS ORDERED: VRAYLAR PO (19:23)
[2019-04-26] MEDS ORDERED: RISPERIDONE 1 MG TABLET PO SCH (09:00)
== END 2019-04-25 19:29 ==
LOC: ED 09:28
DX: F29 Unspecified psychosis not due to a substance or known physiological condition (principal); I10 Essential (primary) hypertension; E11.9 Type 2 diabetes mellitus without complications; F20.9 Schizophrenia, unspecified; F17.200 Nicotine dependence, unspecified, uncomplicated; Z90.710 Acquired absence of both cervix and uterus; Z88.8 Allergy status to other drugs, medicaments and biological substances
CPT/HCPCS: 36415; 80048; 80307; 82040; 85025; 93005; 96372; 99285; J3486

== ENCOUNTER 2019-04-25 18:09 | Inpatient (IN) | payer MEDICAID ==
[~2019-04-25] VITALS: Ht 165.1 cm; Wt 64.8 kg
[2019-04-25] MEDS ORDERED: BISACODYL 10 MG SUPP PR PRN (18:30)
[2019-04-25] MEDS ORDERED: ONDANSETRON ODT 4 MG PO PRN (18:30)
[2019-04-25] MEDS ORDERED: POLYETHYLENE GLYCOL 17 GM PACKET PO PRN (18:30)
[2019-04-25] MEDS ORDERED: LORazepam 2 MG/ML, 1ML IM PRN (18:30)
[2019-04-25] MEDS ORDERED: DOCUSATE 100 MG CAPSULE PO PRN (18:30)
[2019-04-25] MEDS ORDERED: CHANTIX (19:23)
[2019-04-25] MEDS ORDERED: VRAYLAR PO (19:23)
[2019-04-25 20:00] VITALS: BP 105/68
[2019-04-25] MEDS: ACETAMINOPHEN 325 MG TABLET PO PRN (20:48)
[2019-04-25] MEDS: NICOTINE 14MG/24 HR PATCH.TD24 TD SCH (20:48)
[2019-04-25 23:08] VITALS: BP 105/67
[2019-04-26] MEDS: LORazepam 1MG TABLET PO PRN ×2 (04:40→18:18)
[2019-04-26 06:19] LABS: ANION GAP 8 mmol/L (5-15); CALCIUM 8.5 mg/dL (8.5-10.1); CHLORIDE 108 mmol/L (98-107)
[2019-04-26 06:24] LABS: BASOPHILS # (AUTO) 0.02 x10^3/uL (0-0.1); BASOPHILS % (AUTO) 1 % (0-1); EOSINOPHILS # (AUTO) 0.11 x10^3/uL (0-0.4); EOSINOPHILS % (AUTO) 2 % (1-7); LYMPHOCYTES # (AUTO) 1.13 x10^3/uL (1-3.4); LYMPHOCYTES % (AUTO) 22 % (22-44); MD NO; MEAN CORPUSCULAR HEMOGLOBIN 30.5 pg (27.0-34.8); MEAN CORPUSCULAR HGB CONC 33.9 g/dL (32.4-35.8); MEAN CORPUSCULAR VOLUME 89.7 fL (80-100); MEAN PLATELET VOLUME 8.3 fL (7.4-10.4); MONOCYTES # (AUTO) 0.55 x10^3/uL (0.2-0.8); MONOCYTES % (AUTO) 11 % (2-9); NEUTROPHILS # (AUTO) 3.43 x10^3/uL (1.8-6.8); NEUTROPHILS % (AUTO) 65 % (42-75); PLATELET COUNT 198 x10^3/uL (130-400); RED CELL DISTRIBUTION WIDTH 14.2 % (9.6-15.2)
[2019-04-26 06:47] LABS: CHOL/HDL RATIO 3.4; CHOLESTEROL, TOTAL 175 mg/dL (140-239); CREATININE 0.61 mg/dL (0.55-1.02); FREE T4 (FREE THYROXINE) 1.63 ng/dL (0.76-1.46); HDL CHOL % 30 % (28-40); HDL CHOLESTEROL (DIRECT) 52 mg/dL (40-60); LDL CHOLESTEROL,CALCULATED 112 mg/dL (54-169); LDL/HDL RATIO 2.2 (0.5-3.0); TRIGLYCERIDES 53 mg/dL (50-200); VLDL CHOLESTEROL 11 mg/dL (0-25)
[2019-04-26 07:20] VITALS: BP 114/78
[2019-04-26] MEDS ORDERED: LORazepam 1MG TABLET PO ONE (09:30)
[2019-04-26] MEDS: POTASSIUM CHLORIDE 20 MEQ TAB.ER.PRT PO SCH (09:50)
[2019-04-26] MEDS: RISPERIDONE 1 MG TABLET PO SCH ×2 (09:56→20:17)
[2019-04-26] MEDS: GUAIFENESIN 100 MG/5 ML, 5ML UDC PO PRN (18:20)
[2019-04-26 19:30] VITALS: BP 85/55
[2019-04-26] MEDS: NICOTINE 14MG/24 HR PATCH.TD24 TD SCH (20:16)
[2019-04-27] MEDS: GUAIFENESIN 100 MG/5 ML, 5ML UDC PO PRN (02:10)
[2019-04-27] MEDS: POTASSIUM CHLORIDE 20 MEQ TAB.ER.PRT PO SCH (09:00)
[2019-04-27] MEDS: RISPERIDONE 1 MG TABLET PO SCH ×2 (09:11→20:25)
[2019-04-27] MEDS: LORazepam 1MG TABLET PO PRN (09:11)
[2019-04-27] MEDS: ACETAMINOPHEN 325 MG TABLET PO PRN (16:30)
[2019-04-27 19:00] VITALS: BP 106/69
[2019-04-27] MEDS: NICOTINE 14MG/24 HR PATCH.TD24 TD SCH (20:25)
[2019-04-28 08:30] VITALS: BP 129/86
[2019-04-28] MEDS: BUPROPION SR 100 MG TABLET PO SCH ×2 (08:50→12:34)
[2019-04-28] MEDS: POTASSIUM CHLORIDE 20 MEQ TAB.ER.PRT PO SCH (08:50)
[2019-04-28] MEDS: ACETAMINOPHEN 325 MG TABLET PO PRN ×2 (08:50→20:30)
[2019-04-28] MEDS: RISPERIDONE 1 MG TABLET PO SCH ×2 (08:50→20:22)
[2019-04-28 19:45] VITALS: BP 117/81
[2019-04-28] MEDS: NICOTINE 14MG/24 HR PATCH.TD24 TD SCH (20:22)
[2019-04-28] MEDS: LORazepam 1MG TABLET PO PRN (21:42)
[2019-04-29 07:51] VITALS: BP 133/89
[2019-04-29] MEDS: RISPERIDONE 1 MG TABLET PO SCH ×2 (08:52→20:13)
[2019-04-29] MEDS: POTASSIUM CHLORIDE 20 MEQ TAB.ER.PRT PO SCH (08:52)
[2019-04-29] MEDS: BUPROPION SR 100 MG TABLET PO SCH ×2 (08:53→12:26)
[2019-04-29] MEDS: ACETAMINOPHEN 325 MG TABLET PO PRN ×3 (08:53→18:34)
[2019-04-29 19:28] VITALS: BP 97/60
[2019-04-29] MEDS: NICOTINE 14MG/24 HR PATCH.TD24 TD SCH (20:11)
[2019-04-30] MEDS: ACETAMINOPHEN 325 MG TABLET PO PRN ×2 (04:41→19:54)
[2019-04-30 07:25] VITALS: BP 145/87
[2019-04-30] MEDS: RISPERIDONE 1 MG TABLET PO SCH ×2 (08:37→19:54)
[2019-04-30] MEDS: POTASSIUM CHLORIDE 20 MEQ TAB.ER.PRT PO SCH (08:37)
[2019-04-30] MEDS: BUPROPION SR 100 MG TABLET PO SCH ×2 (08:37→11:52)
[2019-04-30] MEDS: LORazepam 1MG TABLET PO PRN ×2 (08:45→18:17)
[2019-04-30] MEDS ORDERED: NICO-486 TD (14:21)
[2019-04-30] MEDS ORDERED: BUPR-173 PO (14:21)
[2019-04-30] MEDS ORDERED: RISP1TAB45 PO (14:21)
[2019-04-30 19:09] VITALS: BP 122/75
[2019-04-30] MEDS: NICOTINE 14MG/24 HR PATCH.TD24 TD SCH (19:54)
[2019-05-01] MEDS: LORazepam 1MG TABLET PO PRN (01:30)
[2019-05-01 07:53] VITALS: BP 112/78
[2019-05-01] MEDS: RISPERIDONE 1 MG TABLET PO SCH (08:19)
[2019-05-01] MEDS: BUPROPION SR 100 MG TABLET PO SCH (08:19)
== END 2019-05-01 10:02 | disposition home or self-care (01) | DRG 753 ==
LOC: 3E 19:39
PROVIDERS: ADMIT Psychiatry & Neurology Psychosomatic Medicine; ATTEND Psychiatry & Neurology Psychosomatic Medicine
DX: F31.2 Bipolar disorder, current episode manic severe with psychotic features (principal); F15.20 Other stimulant dependence, uncomplicated; B19.20 Unspecified viral hepatitis C without hepatic coma; E87.6 Hypokalemia; J44.9 Chronic obstructive pulmonary disease, unspecified; I10 Essential (primary) hypertension; F12.10 Cannabis abuse, uncomplicated; F11.10 Opioid abuse, uncomplicated; F17.210 Nicotine dependence, cigarettes, uncomplicated; F90.9 Attention-deficit hyperactivity disorder, unspecified type; Z90.710 Acquired absence of both cervix and uterus; Z88.8 Allergy status to other drugs, medicaments and biological substances; Z72.89 Other problems related to lifestyle; Z83.3 Family history of diabetes mellitus; Z79.899 Other long term (current) drug therapy
CPT/HCPCS: 36415; 80048; 80061; 82140; 82607; 84439; 84443; 85025

== ENCOUNTER 2019-07-26 21:58 | Emergency (ER) | payer MEDICAID ==
[~2019-07-26] VITALS: Ht 165.1 cm; Wt 65.2 kg
[~2019-07-26 21:58] MED LIST changes: +BUPR-173 PO; +CHANTIX; +HYDR-2995 PO; -HYDR10TA4 PO; +RISP1TAB45 PO; +VRAYLAR PO
[2019-07-26 22:02] VITALS: BP 122/86
[2019-07-26 22:36] LABS: RAPID INFLUENZA A Negative (Negative); RAPID INFLUENZA B Negative (Negative)
== END 2019-07-26 23:10 | disposition home or self-care (01) ==
LOC: ED 22:40
DX: J00 Acute nasopharyngitis [common cold] (principal); B34.9 Viral infection, unspecified; Z76.0 Encounter for issue of repeat prescription; I10 Essential (primary) hypertension; E11.9 Type 2 diabetes mellitus without complications; Z90.710 Acquired absence of both cervix and uterus
CPT/HCPCS: 71046; 87400; 99284

== ENCOUNTER 2020-01-13 10:47 | Inpatient (IN) | payer MEDICAID ==
[~2020-01-13] VITALS: Ht 166.4 cm; Wt 58.7 kg
[2020-01-13] MEDS ORDERED: ONDANSETRON ODT 4 MG PO PRN (12:30)
[2020-01-13] MEDS ORDERED: DOCUSATE 100 MG CAPSULE PO PRN (12:30)
[2020-01-13] MEDS ORDERED: POLYETHYLENE GLYCOL 17 GM PACKET PO PRN (12:30)
[2020-01-13] MEDS ORDERED: BISACODYL 10 MG SUPP PR PRN (12:30)
[2020-01-13] MEDS ORDERED: PLEASE ENTER HEIGHT AND WEIGHT MC SCH (14:30)
[2020-01-13] MEDS ORDERED: HALOPERIDOL 1 MG TABLET PO PRN (14:30)
[2020-01-13 15:29] VITALS: BP 107/78
[2020-01-13] MEDS ORDERED: ALBUTEROL HFA 90 MCG/SPRAY INH PRN (16:00)
[2020-01-13] MEDS ORDERED: CARI4.5C PO (16:01)
[2020-01-13 19:16] VITALS: BP 111/69
[2020-01-13] MEDS: RISPERIDONE 1 MG TABLET PO SCH (20:00)
[2020-01-13] MEDS: LORazepam 1MG TABLET PO PRN (20:02)
[2020-01-14 07:10] VITALS: BP 126/85
[2020-01-14 08:24] LABS: CHOL/HDL RATIO 2.9; FREE T4 (FREE THYROXINE) 0.95 ng/dL (0.76-1.46); LDL/HDL RATIO 1.6 (0.5-3.0)
[2020-01-14] MEDS ORDERED: CARIPRAZINE HOMEMEDPO SCH (09:00)
[2020-01-14] MEDS: LORazepam 1MG TABLET PO PRN (09:15)
[2020-01-14] MEDS: BUPROPION SR 100 MG TABLET PO SCH ×2 (09:15→12:11)
[2020-01-14] MEDS: ACETAMINOPHEN 325 MG TABLET PO PRN (09:16)
[2020-01-14] MEDS: RISPERIDONE 1 MG TABLET PO SCH ×2 (09:16→20:48)
[2020-01-14] MEDS: NICOTINE 14MG/24 HR PATCH.TD24 TD SCH (09:16)
[2020-01-14] MEDS ORDERED: CEFTRIAXONE 250 MG IM ONE (11:30)
[2020-01-14] MEDS ORDERED: AZITHROMYCIN 500 MG TABLET PO ONE (11:30)
[2020-01-14] MEDS ORDERED: CARIPRAZINE PO SCH (17:00)
[2020-01-14] MEDS: VRAYLAR 4.5 MG PO SCH (17:16)
[2020-01-15 07:00] VITALS: BP 125/88
[2020-01-15] MEDS ORDERED: IBUPROFEN 200 MG TABLET ONE (08:52)
[2020-01-15] MEDS: RISPERIDONE 1 MG TABLET PO SCH ×2 (08:55→20:36)
[2020-01-15] MEDS: BUPROPION SR 100 MG TABLET PO SCH ×2 (08:55→12:12)
[2020-01-15] MEDS: LORazepam 1MG TABLET PO PRN (08:56)
[2020-01-15] MEDS: NICOTINE 14MG/24 HR PATCH.TD24 TD SCH (08:56)
[2020-01-15] MEDS ORDERED: IBUPROFEN 200 MG TABLET PO PRN (09:00)
[2020-01-15] MEDS: VRAYLAR 4.5 MG PO SCH (17:36)
[2020-01-15 19:01] VITALS: BP 122/80
[2020-01-16 07:00] VITALS: BP 136/84
[2020-01-16] MEDS: BUPROPION SR 100 MG TABLET PO SCH ×2 (08:52→12:24)
[2020-01-16] MEDS: RISPERIDONE 1 MG TABLET PO SCH ×2 (08:53→20:01)
[2020-01-16] MEDS: VRAYLAR 4.5 MG HOMEMEDPO SCH (09:00)
[2020-01-16] MEDS: NICOTINE 14MG/24 HR PATCH.TD24 TD SCH (09:00)
[2020-01-16] MEDS: LORazepam 1MG TABLET PO PRN ×2 (10:19→20:00)
[2020-01-16 19:03] VITALS: BP 106/73
[2020-01-16 19:19] LABS: MICROSCOPIC AUTO
[2020-01-16] MEDS: ACETAMINOPHEN 325 MG TABLET PO PRN (20:01)
[2020-01-16] MEDS: METHOCARBAMOL 500 MG TABLET PO PRN (20:01)
[2020-01-17 07:18] VITALS: BP 108/75
[2020-01-17] MEDS: BUPROPION SR 100 MG TABLET PO SCH ×2 (08:41→12:00)
[2020-01-17] MEDS: VRAYLAR 4.5 MG HOMEMEDPO SCH (08:43)
[2020-01-17] MEDS: NICOTINE 14MG/24 HR PATCH.TD24 TD SCH (08:50)
[2020-01-17] MEDS: METHOCARBAMOL 500 MG TABLET PO PRN (08:54)
[2020-01-17] MEDS: RISPERIDONE 1 MG TABLET PO SCH (09:00)
[2020-01-17] MEDS: LORazepam 1MG TABLET PO PRN ×2 (12:48→18:23)
[2020-01-17] MEDS: NAPROXEN 500 MG TABLET PO PRN (18:23)
[2020-01-17 19:30] VITALS: BP 108/75
[2020-01-18] MEDS: LORazepam 1MG TABLET PO PRN ×2 (02:49→12:49)
[2020-01-18 07:29] VITALS: BP 118/82
[2020-01-18] MEDS: VRAYLAR 4.5 MG HOMEMEDPO SCH (07:58)
[2020-01-18] MEDS: NICOTINE 14MG/24 HR PATCH.TD24 TD SCH (07:58)
[2020-01-18] MEDS: BUPROPION SR 100 MG TABLET PO SCH (07:59)
[2020-01-18] MEDS: NAPROXEN 500 MG TABLET PO PRN ×2 (12:57→23:28)
[2020-01-18] MEDS: METHOCARBAMOL 500 MG TABLET PO PRN ×2 (17:07→23:28)
[2020-01-18 18:57] VITALS: BP 131/92
[2020-01-19 07:31] VITALS: BP 111/82
[2020-01-19] MEDS: VRAYLAR 4.5 MG HOMEMEDPO SCH (09:08)
[2020-01-19] MEDS: BUPROPION SR 100 MG TABLET PO SCH (09:08)
[2020-01-19] MEDS: NICOTINE 14MG/24 HR PATCH.TD24 TD SCH (09:10)
[2020-01-19] MEDS: NAPROXEN 500 MG TABLET PO PRN (09:16)
[2020-01-19] MEDS: LORazepam 1MG TABLET PO PRN (09:17)
[2020-01-19] MEDS ORDERED: VRAYLAR 4.5 MG HOMEMEDPO (11:58)
[2020-01-19] MEDS ORDERED: ALBU18HF INH (11:58)
[2020-01-19] MEDS ORDERED: BUPR-173 PO (11:58)
[2020-01-19] MEDS ORDERED: NICO-486 TD (11:58)
== END 2020-01-19 12:43 | disposition home or self-care (01) | DRG 753 ==
LOC: 3E 13:52
PROVIDERS: ADMIT Psychiatry & Neurology Psychosomatic Medicine; ATTEND Psychiatry & Neurology Psychosomatic Medicine
DX: F31.2 Bipolar disorder, current episode manic severe with psychotic features (principal); F15.20 Other stimulant dependence, uncomplicated; B19.20 Unspecified viral hepatitis C without hepatic coma; F10.10 Alcohol abuse, uncomplicated; F11.20 Opioid dependence, uncomplicated; F12.10 Cannabis abuse, uncomplicated; F17.210 Nicotine dependence, cigarettes, uncomplicated; L29.8 Other pruritus; N89.8 Other specified noninflammatory disorders of vagina; Z88.8 Allergy status to other drugs, medicaments and biological substances; Z59.0 Homelessness; Z79.899 Other long term (current) drug therapy; Y90.9 Presence of alcohol in blood, level not specified
CPT/HCPCS: 36415; 71045; 80061; 81001; 82140; 82607; 84439; 87086; 93005; 99285; J0696

== ENCOUNTER 2020-01-28 09:52 | Emergency (ER) | payer MEDICAID ==
[~2020-01-28] VITALS: Ht 167.6 cm; Wt 59.0 kg
[~2020-01-28 09:52] MED LIST changes: +ALBU18HF INH; +CARI4.5C PO; +VRAYLAR 4.5 MG HOMEMEDPO
[2020-01-28 10:04] VITALS: BP 134/96
[2020-01-28] MEDS ORDERED: LORazepam 0.5MG TABLET PO ONE (10:30)
[2020-01-28 10:36] LABS: BASOPHILS # (AUTO) 0.03 x10^3/uL (0-0.1); BASOPHILS % (AUTO) 0 % (0-1); EOSINOPHILS # (AUTO) 0.08 x10^3/uL (0-0.4); EOSINOPHILS % (AUTO) 1 % (1-7); LYMPHOCYTES # (AUTO) 1.81 x10^3/uL (1-3.4); LYMPHOCYTES % (AUTO) 17 % (22-44); MD NO; MEAN CORPUSCULAR HEMOGLOBIN 29.5 pg (27.0-34.8); MEAN CORPUSCULAR HGB CONC 32.5 g/dL (32.4-35.8); MEAN CORPUSCULAR VOLUME 90.5 fL (80-100); MEAN PLATELET VOLUME 7.8 fL (7.4-10.4); MONOCYTES # (AUTO) 0.45 x10^3/uL (0.2-0.8); MONOCYTES % (AUTO) 4 % (2-9); NEUTROPHILS % (AUTO) 77 % (42-75); PLATELET COUNT 277 x10^3/uL (130-400); RED BLOOD COUNT 5.03 x10^6/uL (3.82-5.3); RED CELL DISTRIBUTION WIDTH 14.9 % (9.6-15.2)
[2020-01-28] MEDS ORDERED: LORazepam 0.5MG TABLET ONE (10:42)
--- NOTE | 2020-01-28 10:43 | NUR ---
FIRST CONTACT WITH PT. PT STATED "I WANT TO BE CHECKED INTO THE BEHAVIOR UNIT." +SI. THOUGHTS OF OD ON PILLS. AND I HAVE CP STARTING A FEW NIGHTS AGO. RT SIDED SHARP CP. PT'S AOX4. RESPS EVEN AND UNLABORED.
[2020-01-28 10:50] LABS: ALBUMIN 3.7 g/dL (3.4-5.0); ANION GAP 5 mmol/L (5-15); CALCIUM 8.9 mg/dL (8.5-10.1); CHLORIDE 111 mmol/L (98-107)
[2020-01-28 10:54] LABS: ALANINE AMINOTRANSFERASE 33 U/L (12-78); ALKALINE PHOSPHATASE 74 U/L (45-117); BILIRUBIN,TOTAL 0.5 mg/dL (0.2-1.0); CREATININE 0.75 mg/dL (0.55-1.02); SALICYLATE LEVEL 2.1 mg/dL (2.8-20.0); TOTAL PROTEIN 7.7 g/dL (6.4-8.2)
--- NOTE | 2020-01-28 11:04 | NUR ---
DIET TRAY ORDERED AT THIS TIME.
--- NOTE | 2020-01-28 11:07 | NUR ---
ORDER ENTRY CLERK AT BEDSIDE EVALUATING AT THIS TIME.
--- NOTE | 2020-01-28 11:45 | NUR ---
SW AT BEDSIDE AT THIS TIME.
--- NOTE | 2020-01-28 12:06 | NUR ---
MEAL TRAY PROVIDED. SAMANTHA STREETER AT BEDSIDE, ASSESSMENT IN PROGRESS
[2020-01-28 12:17] LABS: MICROSCOPIC NOT IND
[2020-01-28 12:30] LABS: AMPHETAMINE SCREEN, URINE Negative (Negative); BARBITURATE SCREEN, URINE Negative (Negative); BENZODIAZEPINE SCREEN, URINE Negative (Negative); CANNABINOID SCREEN, URINE Negative (Negative); COCAINE SCREEN, URINE Negative (Negative); METHADONE SCREEN, URINE Negative (Negative); OPIATE SCREEN, URINE Negative (Negative)
--- NOTE | 2020-01-28 12:48 | NUR ---
BELONGING BAGS GAVE TO PT. PT IS CHANGING AT THIS TIME.
--- NOTE | 2020-01-28 13:09 | NUR ---
Patient given discharge instructions and they have confirmed that they understand the instructions. Patient ambulatory with steady gait.
== END 2020-01-28 13:10 | disposition home or self-care (01) ==
LOC: ED 10:35
DX: F32.9 Major depressive disorder, single episode, unspecified (principal); R07.89 Other chest pain; I10 Essential (primary) hypertension; E11.9 Type 2 diabetes mellitus without complications; Z90.710 Acquired absence of both cervix and uterus
CPT/HCPCS: 36415; 80053; 80307; 81003; 85025; 93005; 99284

== ENCOUNTER 2020-04-10 22:13 | Emergency (ER) | payer MEDICAID ==
[~2020-04-10] VITALS: Ht 165.1 cm; Wt 62.6 kg
--- NOTE | 2020-04-10 22:39 | NUR ---
PT STATES COMING IN BECAUSE OF HISTORY OF BIPOLAR AND DEPRESSION. PT HAS NOT BEEN TAKING MEDS AND STATES SHE WANTS TO BE EVALUATED BY BEHAVIORAL HEALTH. PT DENIES SI/HI AND IS RESTING IN BED COMFORTABLY
--- NOTE | 2020-04-10 22:51 | NUR ---
PT STATES UNABLE TO GIVE A URINE SAMPLE AT THIS TIME, BECAUSE SHE JUST URINATED.
--- NOTE | 2020-04-10 23:04 | NUR ---
PT GIVEN WATER, OK PER ERP. WILL ATTEMPT URINE LATER
[2020-04-10 23:15] LABS: ALANINE AMINOTRANSFERASE 38 U/L (12-78); ALBUMIN 3.3 g/dL (3.4-5.0); ANION GAP 5 mmol/L (5-15); CALCIUM 8.4 mg/dL (8.5-10.1); CHLORIDE 110 mmol/L (98-107); CREATININE 0.68 mg/dL (0.55-1.02); SALICYLATE LEVEL 2.8 mg/dL (2.8-20.0)
[2020-04-10 23:17] LABS: BASOPHILS % (AUTO) 1 % (0-1); EOSINOPHILS % (AUTO) 4 % (1-7); LYMPHOCYTES % (AUTO) 33 % (22-44); MEAN CORPUSCULAR HEMOGLOBIN 29.7 pg (27.0-34.8); MEAN CORPUSCULAR HGB CONC 33.6 g/dL (32.4-35.8); MONOCYTES % (AUTO) 7 % (2-9); NEUTROPHILS % (AUTO) 56 % (42-75); PLATELET COUNT 260 x10^3/uL (130-400); RED BLOOD COUNT 4.72 x10^6/uL (3.82-5.3)
[2020-04-10 23:25] LABS: ALKALINE PHOSPHATASE 67 U/L (45-117); BILIRUBIN,TOTAL 0.2 mg/dL (0.2-1.0); MD NO; TOTAL PROTEIN 6.7 g/dL (6.4-8.2)
[2020-04-11 00:02] LABS: AMPHETAMINE SCREEN, URINE Negative (Negative); BARBITURATE SCREEN, URINE Negative (Negative); BENZODIAZEPINE SCREEN, URINE Negative (Negative); CANNABINOID SCREEN, URINE Positive (Negative); COCAINE SCREEN, URINE Negative (Negative); METHADONE SCREEN, URINE Negative (Negative); OPIATE SCREEN, URINE Negative (Negative)
[2020-04-11 01:12] VITALS: BP 96/58
--- NOTE | 2020-04-11 02:30 | NUR ---
PT PLACED ON LEGAL HOLD, ALL BELONGINGS (2 BELONGING'S BAG, AND SLEEPING BAG) PLACED IN LOCKUP. ROOM SECURED, AND PT IS SLEEPING IN GURNEY IN LINE OF SIGHT OF SITTER.
--- NOTE | 2020-04-11 03:55 | NUR ---
PT RESTING IN [facility], STATES NO NEEDS AT THIS TIME, IN LINEOF SIGHT OF SARAH
--- NOTE | 2020-04-11 04:25 | NUR ---
THE PACKET FAXED TO [facility], FAX CONFIRMED
--- NOTE | 2020-04-11 04:42 | NUR ---
[facility] accepting for JAIMIE Iqbal. Dr. Melton. Will call for report.
--- NOTE | 2020-04-11 04:47 | NUR ---
PT STATES SHE DOES NOT TAKE ANY HOME MEDS
--- NOTE | 2020-04-11 04:55 | NUR ---
REPORT GIVEN TO JAIMIE DAVIS
== END 2020-04-11 05:09 ==
LOC: ED 22:47
DX: R45.851 Suicidal ideations (principal); F31.9 Bipolar disorder, unspecified; Z91.14 Patient's other noncompliance with medication regimen; F15.10 Other stimulant abuse, uncomplicated; F17.210 Nicotine dependence, cigarettes, uncomplicated; Z90.710 Acquired absence of both cervix and uterus; E11.9 Type 2 diabetes mellitus without complications; I10 Essential (primary) hypertension; Z72.9 Problem related to lifestyle, unspecified
CPT/HCPCS: 36415; 80053; 80307; 84443; 85025; 99285; 99406

== ENCOUNTER 2020-04-11 05:03 | Inpatient (IN) | payer MEDICAID ==
[~2020-04-11] VITALS: Ht 165.1 cm; Wt 61.0 kg
[2020-04-11] MEDS ORDERED: POLYETHYLENE GLYCOL 17 GM PACKET PO PRN (05:30)
[2020-04-11] MEDS ORDERED: ONDANSETRON ODT 4 MG PO PRN (05:30)
[2020-04-11] MEDS ORDERED: BISACODYL 10 MG SUPP PR PRN (05:30)
[2020-04-11] MEDS ORDERED: DOCUSATE 100 MG CAPSULE PO PRN (05:30)
[2020-04-11 05:35] VITALS: BP 113/84
[2020-04-11 07:34] VITALS: BP 130/83
[2020-04-11] MEDS: NICOTINE 14MG/24 HR PATCH.TD24 TD SCH (08:11)
[2020-04-11 08:16] LABS: FREE T4 (FREE THYROXINE) 1.08 ng/dL (0.76-1.46)
[2020-04-11 08:57] LABS: MICROSCOPIC NOT IND
[2020-04-11] MEDS: ACAMPROSATE 333 MG TABLET.DR PO SCH ×2 (16:04→20:23)
[2020-04-11] MEDS ORDERED: ALBUTEROL HFA 90 MCG/SPRAY INH PRN (18:00)
[2020-04-11 19:18] VITALS: BP 111/75
[2020-04-12] MEDS: ACETAMINOPHEN 325 MG TABLET PO PRN (03:09)
[2020-04-12] MEDS: LORazepam 1MG TABLET PO PRN (03:09)
[2020-04-12 07:15] VITALS: BP 115/76
[2020-04-12] MEDS: BUPROPION SR 150 MG TABLET PO SCH (08:18)
[2020-04-12] MEDS: ACAMPROSATE 333 MG TABLET.DR PO SCH ×3 (08:18→20:39)
[2020-04-12] MEDS: NICOTINE 14MG/24 HR PATCH.TD24 TD SCH (08:19)
[2020-04-12] MEDS: NAPROXEN 500 MG TABLET PO PRN (16:30)
[2020-04-12] MEDS ORDERED: CARIPRAZINE 1.5 MG CAP PO SCH (17:00)
[2020-04-12] MEDS ORDERED: CARIPRAZINE 4.5 MG PO SCH (17:00)
[2020-04-12 19:40] VITALS: BP 101/66
[2020-04-12 21:37] VITALS: BP 101/66
[2020-04-13] MEDS: NAPROXEN 500 MG TABLET PO PRN (06:33)
[2020-04-13 07:22] VITALS: BP 130/85
[2020-04-13] MEDS: BUPROPION SR 150 MG TABLET PO SCH (08:44)
[2020-04-13] MEDS: MULTIVITAMIN 1 TABLET PO SCH (08:44)
[2020-04-13] MEDS: NICOTINE 14MG/24 HR PATCH.TD24 TD SCH (08:44)
[2020-04-13] MEDS: ACAMPROSATE 333 MG TABLET.DR PO SCH ×3 (08:44→20:26)
[2020-04-13] MEDS ORDERED: BUPR150T73 PO (14:27)
[2020-04-13] MEDS ORDERED: NICO-486 TD (14:27)
[2020-04-13] MEDS ORDERED: MULT-449 PO (14:27)
[2020-04-13] MEDS ORDERED: NAPR-856 PO (14:27)
[2020-04-13] MEDS ORDERED: CARI1.5C2 PO (14:27)
[2020-04-13] MEDS ORDERED: ALBU18HF INH (14:27)
[2020-04-13] MEDS: CARIPRAZINE 1.5 MG CAP PO SCH (16:04)
[2020-04-13 18:29] VITALS: BP 132/85
[2020-04-14] MEDS: NAPROXEN 500 MG TABLET PO PRN ×2 (06:17→14:48)
[2020-04-14 07:24] VITALS: BP 118/82
[2020-04-14] MEDS: NICOTINE 14MG/24 HR PATCH.TD24 TD SCH (08:28)
[2020-04-14] MEDS: MULTIVITAMIN 1 TABLET PO SCH (08:28)
[2020-04-14] MEDS: ACAMPROSATE 333 MG TABLET.DR PO SCH ×3 (08:28→20:22)
[2020-04-14] MEDS: BUPROPION SR 150 MG TABLET PO SCH (08:29)
[2020-04-14] MEDS: FLUOXETINE 10 MG CAP PO SCH (14:45)
[2020-04-14] MEDS: CARIPRAZINE 1.5 MG CAP PO SCH (16:11)
[2020-04-14 19:49] VITALS: BP 119/81
[2020-04-15] MEDS: NAPROXEN 500 MG TABLET PO PRN ×2 (02:10→20:30)
[2020-04-15] MEDS: BUPROPION SR 150 MG TABLET PO SCH (07:56)
[2020-04-15] MEDS: MULTIVITAMIN 1 TABLET PO SCH (07:56)
[2020-04-15] MEDS: FLUOXETINE 10 MG CAP PO SCH (07:56)
[2020-04-15] MEDS: ACAMPROSATE 333 MG TABLET.DR PO SCH ×3 (07:57→20:29)
[2020-04-15] MEDS: NICOTINE 14MG/24 HR PATCH.TD24 TD SCH (08:00)
[2020-04-15] MEDS: ACETAMINOPHEN 325 MG TABLET PO PRN (08:07)
[2020-04-15 09:05] VITALS: BP 115/75
[2020-04-15] MEDS: LORazepam 1MG TABLET PO PRN (11:03)
[2020-04-15] MEDS: CARIPRAZINE 1.5 MG CAP PO SCH (16:30)
[2020-04-16 07:48] VITALS: BP 125/87
[2020-04-16] MEDS: NAPROXEN 500 MG TABLET PO PRN ×2 (09:00→20:34)
[2020-04-16] MEDS: BUPROPION SR 150 MG TABLET PO SCH (09:38)
[2020-04-16] MEDS: MULTIVITAMIN 1 TABLET PO SCH (09:38)
[2020-04-16] MEDS: FLUOXETINE 10 MG CAP PO SCH (09:38)
[2020-04-16] MEDS: NICOTINE 14MG/24 HR PATCH.TD24 TD SCH (09:39)
[2020-04-16] MEDS: ACAMPROSATE 333 MG TABLET.DR PO SCH ×3 (09:40→20:29)
[2020-04-16] MEDS: LORazepam 1MG TABLET PO PRN (10:59)
[2020-04-16] MEDS: CARIPRAZINE 1.5 MG CAP PO SCH (16:40)
[2020-04-16 19:39] VITALS: BP 104/71
[2020-04-17] MEDS: NAPROXEN 500 MG TABLET PO PRN (06:30)
[2020-04-17 07:20] VITALS: BP 114/77
[2020-04-17] MEDS: NICOTINE 14MG/24 HR PATCH.TD24 TD SCH (10:36)
[2020-04-17] MEDS: FLUOXETINE 10 MG CAP PO SCH (10:37)
[2020-04-17] MEDS: ACAMPROSATE 333 MG TABLET.DR PO SCH (10:37)
[2020-04-17] MEDS: MULTIVITAMIN 1 TABLET PO SCH (10:37)
[2020-04-17] MEDS: BUPROPION SR 150 MG TABLET PO SCH (10:37)
== END 2020-04-17 11:10 | disposition home or self-care (01) | DRG 753 ==
LOC: 3E 05:23
PROVIDERS: ADMIT Psychiatry & Neurology Psychosomatic Medicine; ATTEND Psychiatry & Neurology Psychosomatic Medicine
DX: F31.5 Bipolar disorder, current episode depressed, severe, with psychotic features (principal); R45.851 Suicidal ideations; G89.29 Other chronic pain; I10 Essential (primary) hypertension; Z59.0 Homelessness; Z79.899 Other long term (current) drug therapy; Z82.49 Family history of ischemic heart disease and other diseases of the circulatory system; F17.210 Nicotine dependence, cigarettes, uncomplicated; F20.9 Schizophrenia, unspecified; F15.10 Other stimulant abuse, uncomplicated; F10.20 Alcohol dependence, uncomplicated; E11.9 Type 2 diabetes mellitus without complications; B19.20 Unspecified viral hepatitis C without hepatic coma; Z82.5 Family history of asthma and other chronic lower respiratory diseases; Z83.3 Family history of diabetes mellitus; Z87.01 Personal history of pneumonia (recurrent); Z90.710 Acquired absence of both cervix and uterus; Z20.828 Contact with and (suspected) exposure to other viral communicable diseases
CPT/HCPCS: 36415; 81003; 82140; 84439; 84443; 87426; 93005

== ENCOUNTER 2020-07-20 13:42 | Emergency (ER) | payer MEDICAID ==
[~2020-07-20] VITALS: Ht 170.2 cm; Wt 60.8 kg
[~2020-07-20 13:42] MED LIST changes: +BUPR150T73 PO; +CARI1.5C2 PO; +HYDR-1067 PO; -HYDR-3240 PO; +MULT-449 PO; +NAPR-856 PO
--- NOTE | 2020-07-20 13:53 | NUR ---
MD AT BEDSIDE FOR ASSESSMENT AND TO DISCUSS PLAN OF CARE
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
--- NOTE | 2020-07-20 14:51 | NUR ---
TASK RN: PT LYING FLAT IN GURNEY, NO DISTRESS. AWAITING DISPO
[2020-07-20 15:06] VITALS: BP 97/66
--- NOTE | 2020-07-20 15:06 | NUR ---
MD AT BEDSIDE TO DISCUSS RESULTS AND DISCHARGE
--- NOTE | 2020-07-20 15:06 | NUR ---
PT RESTING ON [employer]. VSS. NAD. CALL LIGHT W/IN REACH. WILL CONTINUE TO MONITOR
--- NOTE | 2020-07-20 16:04 | NUR ---
PT AMBULATED TO DISCHARGE W/STEADY GAIT. PT ENCOURAGED TO FOLLOWUP DISCUSSED. PT EDCUATED TO RETURN TO ED W/WORSENING SYMPTOMS. RX GIVEN
== END 2020-07-20 16:07 | disposition home or self-care (01) ==
LOC: MERGE 13:42 → ED 14:33
DX: S80.01XA Contusion of right knee, initial encounter (principal); F17.290 Nicotine dependence, other tobacco product, uncomplicated; W19.XXXA Unspecified fall, initial encounter; Y93.89 Activity, other specified; Y92.488 Other paved roadways as the place of occurrence of the external cause; Y99.8 Other external cause status
CPT/HCPCS: 99283

== ENCOUNTER 2020-07-22 00:02 | Emergency (ER) | payer MEDICAID ==
[~2020-07-22] VITALS: Ht 165.1 cm; Wt 69.5 kg
[2020-07-22 00:06] VITALS: BP 154/117
== END 2020-07-22 00:20 | disposition home or self-care (01) ==
LOC: ED 00:14
DX: F15.151 Other stimulant abuse with stimulant-induced psychotic disorder with hallucinations (principal); F15.150 Other stimulant abuse with stimulant-induced psychotic disorder with delusions; F10.129 Alcohol abuse with intoxication, unspecified; I10 Essential (primary) hypertension; E11.9 Type 2 diabetes mellitus without complications; F17.210 Nicotine dependence, cigarettes, uncomplicated; Z72.9 Problem related to lifestyle, unspecified; Z90.710 Acquired absence of both cervix and uterus; Y90.9 Presence of alcohol in blood, level not specified
CPT/HCPCS: 99284

== ENCOUNTER 2020-08-07 20:08 | Emergency (ER) | payer MEDICAID ==
[~2020-08-07] VITALS: Ht 167.6 cm; Wt 57.0 kg
[2020-08-07 20:11] VITALS: BP 129/83
--- NOTE | 2020-08-07 21:01 | NUR ---
SECURITY CALLED FOR DC, PT PROVIDED TAXI VOUCHER FOR SAFEST DC TO [facility].
== END 2020-08-07 21:03 | disposition home or self-care (01) ==
LOC: ED 20:51
DX: F15.159 Other stimulant abuse with stimulant-induced psychotic disorder, unspecified (principal); F10.10 Alcohol abuse, uncomplicated; F11.10 Opioid abuse, uncomplicated; F20.0 Paranoid schizophrenia; I10 Essential (primary) hypertension; E11.9 Type 2 diabetes mellitus without complications; F17.210 Nicotine dependence, cigarettes, uncomplicated; Z72.9 Problem related to lifestyle, unspecified; Z90.710 Acquired absence of both cervix and uterus; Y90.0 Blood alcohol level of less than 20 mg/100 ml
CPT/HCPCS: 99284; 99406

== ENCOUNTER 2020-11-13 02:23 | Emergency (ER) | payer MEDICAID ==
[~2020-11-13] VITALS: Ht 166.4 cm; Wt 58.5 kg
[~2020-11-13 02:23] MED LIST changes: -HYDR-1067 PO; +HYDR-2214 PO; +SULF-23 PO; -SULF1TAB24 PO
[2020-11-13] MEDS ORDERED: LIDOCAINE-MPF 1%, 2ML ONE (02:54)
[2020-11-13] MEDS ORDERED: LIDOCAINE-MPF 1%, 5ML ONE (02:58)
[2020-11-13] MEDS ORDERED: DIPH,PERTUSS(ACELL),TET VAC/PF 0.5 ML IM-VACC ONE ×2 (03:00→03:54)
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
--- NOTE | 2020-11-13 03:36 | NUR ---
PROVIDED INJECTED LIDOCAINE TO LACERATED AREA, BLEEDING CONTROLLED AT THIS TIME
[2020-11-13] MEDS ORDERED: BACITRACIN ZINC OINT 500U/GM, 0.9 GM ONE (03:50)
[2020-11-13 04:15] VITALS: BP 132/75
== END 2020-11-13 04:19 | disposition home or self-care (01) ==
LOC: ED 04:00
DX: S06.0X0A Concussion without loss of consciousness, initial encounter (principal); S01.111A Laceration without foreign body of right eyelid and periocular area, initial encounter; F15.129 Other stimulant abuse with intoxication, unspecified; I10 Essential (primary) hypertension; E11.9 Type 2 diabetes mellitus without complications; F17.200 Nicotine dependence, unspecified, uncomplicated; Z72.9 Problem related to lifestyle, unspecified; W01.0XXA Fall on same level from slipping, tripping and stumbling without subsequent striking against object, initial encounter; Y93.89 Activity, other specified; Y92.410 Unspecified street and highway as the place of occurrence of the external cause; Y99.8 Other external cause status
CPT/HCPCS: 12011; 70450; 90471; 90715; 99284

== ENCOUNTER 2020-11-19 21:17 | Emergency (ER) | payer MEDICAID ==
[~2020-11-19] VITALS: Ht 165.1 cm; Wt 59.4 kg
[2020-11-19 21:19] VITALS: BP 127/88
[2020-11-19] MEDS ORDERED: hydrOXyzine 50MG TABLET ONE (21:45)
--- NOTE | 2020-11-19 21:48 | NUR ---
Patient/Caregiver given discharge instructions and they have confirmed that they understand the instructions. Patient ambulatory with steady gait. NAD, all questions answered appropriately, denies additional needs at this time. No personal belongings left in room after discharge.
== END 2020-11-19 21:50 | disposition home or self-care (01) ==
LOC: ED 21:30
DX: S01.111D Laceration without foreign body of right eyelid and periocular area, subsequent encounter (principal); Z76.0 Encounter for issue of repeat prescription; F17.210 Nicotine dependence, cigarettes, uncomplicated; F15.10 Other stimulant abuse, uncomplicated; F10.10 Alcohol abuse, uncomplicated; Y90.0 Blood alcohol level of less than 20 mg/100 ml; X58.XXXD Exposure to other specified factors, subsequent encounter
CPT/HCPCS: 99283; Q0177

== ENCOUNTER 2020-11-30 13:04 | Inpatient (IN) | payer MEDICAID ==
[~2020-11-30] VITALS: Ht 167.6 cm; Wt 55.2 kg
[2020-11-30] MEDS ORDERED: ONDANSETRON ODT 4 MG PO PRN (15:00)
[2020-11-30] MEDS ORDERED: DOCUSATE 100 MG CAPSULE PO PRN (15:00)
[2020-11-30] MEDS ORDERED: NICOTINE 14MG/24 HR PATCH.TD24 TD SCH (15:00)
[2020-11-30] MEDS ORDERED: ACETAMINOPHEN 325 MG TABLET PO PRN (15:00)
[2020-11-30] MEDS ORDERED: POLYETHYLENE GLYCOL 17 GM PACKET PO PRN (15:00)
[2020-11-30] MEDS ORDERED: PLEASE ENTER HEIGHT AND WEIGHT MC SCH (18:00)
[2020-11-30] MEDS ORDERED: CARI3CAP PO (18:08)
[2020-11-30] MEDS ORDERED: TRAZ-175 PO (18:08)
[2020-11-30] MEDS ORDERED: LAMO25TB7 PO (18:08)
[2020-11-30] MEDS ORDERED: HYDR50TA99 PO (18:08)
[2020-11-30 19:04] VITALS: BP 120/70
[2020-11-30 19:35] VITALS: BP 113/78
[2020-12-01 07:08] LABS: CHOL/HDL RATIO 3.7; FREE T4 (FREE THYROXINE) 0.84 ng/dL (0.76-1.46); LDL/HDL RATIO 2.2 (0.5-3.0)
[2020-12-01 07:38] VITALS: BP_SYST 123; BP_SYST 130; BP_DIAS 76; BP_DIAS 88
[2020-12-01] MEDS: BUPROPION SR 100 MG TABLET PO SCH (08:55)
[2020-12-01] MEDS: NICOTINE 14MG/24 HR PATCH.TD24 TD SCH (08:56)
[2020-12-01] MEDS ORDERED: CARIPRAZINE 3 MG CAP PO SCH (09:00)
[2020-12-01] MEDS: HYDROXYZINE PAMOATE 50MG CAP PO PRN (17:04)
[2020-12-01 19:34] VITALS: BP 125/75
[2020-12-01] MEDS: TRAZODONE 100MG TABLET PO SCH (20:13)
[2020-12-01 20:41] LABS: MICROSCOPIC NOT IND
[2020-12-02 07:32] VITALS: BP 106/70
[2020-12-02] MEDS: BUPROPION SR 100 MG TABLET PO SCH (08:52)
[2020-12-02] MEDS: NICOTINE 14MG/24 HR PATCH.TD24 TD SCH (08:55)
[2020-12-02] MEDS: CARIPRAZINE 4.5 MG PO SCH (08:55)
[2020-12-02 19:39] VITALS: BP 110/75
[2020-12-02] MEDS: TRAZODONE 100MG TABLET PO SCH (20:11)
[2020-12-03 07:13] VITALS: BP 99/67
[2020-12-03] MEDS: BUPROPION SR 100 MG TABLET PO SCH (08:29)
[2020-12-03] MEDS: NICOTINE 14MG/24 HR PATCH.TD24 TD SCH (08:29)
[2020-12-03] MEDS: CARIPRAZINE 4.5 MG PO SCH (08:31)
[2020-12-03] MEDS: HYDROXYZINE PAMOATE 50MG CAP PO PRN ×2 (09:00→16:57)
[2020-12-03] MEDS: NAPROXEN 500 MG TABLET PO PRN (16:57)
[2020-12-03 19:19] VITALS: BP 101/73
[2020-12-03] MEDS: TRAZODONE 100MG TABLET PO SCH (20:12)
[2020-12-04 07:11] VITALS: BP 100/71
[2020-12-04] MEDS: NAPROXEN 500 MG TABLET PO PRN ×2 (08:33→20:42)
[2020-12-04] MEDS: BUPROPION SR 100 MG TABLET PO SCH (08:33)
[2020-12-04] MEDS: CARIPRAZINE 4.5 MG PO SCH (08:35)
[2020-12-04] MEDS: NICOTINE 14MG/24 HR PATCH.TD24 TD SCH (08:35)
[2020-12-04] MEDS: MULTIVITAMIN 1 TABLET PO SCH (14:17)
[2020-12-04 19:52] VITALS: BP 108/77
[2020-12-04] MEDS: TRAZODONE 100MG TABLET PO SCH (20:42)
[2020-12-05 08:17] VITALS: BP 106/72
[2020-12-05] MEDS: MULTIVITAMIN 1 TABLET PO SCH (09:27)
[2020-12-05] MEDS: CARIPRAZINE 4.5 MG PO SCH (09:27)
[2020-12-05] MEDS: BUPROPION SR 100 MG TABLET PO SCH (09:27)
[2020-12-05] MEDS: NICOTINE 14MG/24 HR PATCH.TD24 TD SCH (09:28)
[2020-12-05] MEDS: NAPROXEN 500 MG TABLET PO PRN (10:48)
[2020-12-05] MEDS ORDERED: BUPR-173 PO (13:47)
[2020-12-05] MEDS ORDERED: HYDR50CA2 PO (13:47)
[2020-12-05] MEDS ORDERED: NAPR-856 PO (13:47)
[2020-12-05] MEDS ORDERED: TRAZ-175 PO (13:47)
[2020-12-05] MEDS ORDERED: CARI4.5C PO (13:47)
[2020-12-05] MEDS ORDERED: ALBU18HF INH (13:47)
== END 2020-12-05 15:26 | disposition home or self-care (01) | DRG 885 ==
LOC: 3E 17:38
PROVIDERS: ADMIT Psychiatry & Neurology Psychosomatic Medicine; ATTEND Psychiatry & Neurology Psychosomatic Medicine
DX: F31.5 Bipolar disorder, current episode depressed, severe, with psychotic features (principal); F12.10 Cannabis abuse, uncomplicated; F17.210 Nicotine dependence, cigarettes, uncomplicated; G47.00 Insomnia, unspecified; Z79.899 Other long term (current) drug therapy; Z91.19 Patient's noncompliance with other medical treatment and regimen; Z82.5 Family history of asthma and other chronic lower respiratory diseases; Z82.3 Family history of stroke; Z82.49 Family history of ischemic heart disease and other diseases of the circulatory system; Z83.3 Family history of diabetes mellitus; Z88.8 Allergy status to other drugs, medicaments and biological substances
CPT/HCPCS: 36415; 80061; 81003; 84439; 84443; 93005